=== PATIENT | female | born 1940 | race Caucasian/White ===

== ENCOUNTER 2019-05-04 14:54 | Inpatient (IN) | payer OTHER, MEDICAID ==
[~2019-05-04] VITALS: Ht 147.3 cm; Wt 52.6 kg
[2019-05-04 15:35] VITALS: BP_SYST 148
--- NOTE | 2019-05-04 15:39 | NUR ---
PATIENT PRESENTS TO THE ER WITH HX OF FREQUENT FALLS OVER THE PAST TWO MONTHS WITH ECCYMOTIC AREAS OVER ARMS AND TRUNK IN VARYING DEGREES OF SHADE AND HEALING; STATES THE RECENT FALL HAS CAUSED HER RIGHT HIP PAIN AND UPON ADVISIMG PMD, WAS INSTRUCTED TO GO TO ER FOR EVALUATION; NO LOC, NO OTHER TRAUMA, NO OTHER REMARKABLE S/S; PATIENT IS [place]; PATIENT TO ER #4 AND PLACED ON TOP POLISHER AND SAO2 AT 1530
[2019-05-04] MEDS ORDERED: OXYB15TA3 PO (15:45)
[2019-05-04] MEDS ORDERED: ENAL10TA75 PO ×2 (15:45→18:11)
[2019-05-04] MEDS ORDERED: AMLO5TAB4 PO ×2 (15:45→18:11)
[2019-05-04] MEDS ORDERED: [UNRECOGNIZED DRUG - CODE] PO (15:45)
[2019-05-04] MEDS ORDERED: PRO40 PO ×2 (15:45→18:11)
[2019-05-04] MEDS ORDERED: THEO200T21 PO (15:45)
[2019-05-04] MEDS ORDERED: RANI-673 PO (15:45)
[2019-05-04] MEDS ORDERED: ASPI-524 PO (15:45)
--- NOTE | 2019-05-04 16:09 | NUR ---
ER at bedside examining patient.
--- NOTE | 2019-05-04 16:25 | NUR ---
CXR and hip xray done at the bedside.
--- NOTE | 2019-05-04 16:30 | NUR ---
patient was sent by PCP for evaluatin for frequent fall over past 2 month, bruises arm, trunk noted. pt polish speaking. family at bedside. pt [place] and forgetful. vital sign stable, afebrile. side rail up. fall preaution maintained. will monitor.
[2019-05-04 16:39] LABS: BASOPHILS # (AUTO) 0.1 K/uL (0.0-0.2); BASOPHILS % (AUTO) 0.9 % (0.0-2.0); EOSINOPHILS # (AUTO) 0.2 K/uL (0.0-0.4); EOSINOPHILS % (AUTO) 2.2 % (0.0-4.0); HEMATOCRIT 35.4 % (36-48); HEMOGLOBIN 11.7 g/dL (12.0-16.0); LYMPHOCYTES # (AUTO) 1.7 K/uL (1.0-5.5); LYMPHOCYTES % (AUTO) 17.5 % (20.5-51.5); MEAN CORPUSCULAR HEMOGLOBIN 30 pg (27-31); MEAN CORPUSCULAR HGB CONC 33 % (32-36); MEAN CORPUSCULAR VOLUME 91 fL (79.0-98.0); MONOCYTES # (AUTO) 0.6 K/uL (0.0-1.0); MONOCYTES % (AUTO) 6.3 % (1.7-9.3); NEUTROPHILS # (AUTO) 6.9 K/uL (1.8-7.7); NEUTROPHILS % (AUTO) 73.1 % (40.0-70.0); PLATELET COUNT (AUTO) 253 K/uL (130-430); RED BLOOD CELL COUNT(AUTO) 3.89 MIL/uL (4.2-6.2); RED CELL DISTRIBUTION WIDTH 14.3 % (9.0-15.0); WHITE BLOOD COUNT (AUTO) 9.4 K/uL (4.8-10.8)
[2019-05-04 16:53] LABS: ANION GAP 5 (5-15); CALCIUM 9.9 mg/dL (8.4-11.0); CHLORIDE 107 mmol/L (98-107); CREATININE 0.84 mg/dL (0.55-1.30); GLUCOSE 97 mg/dL (70-99); SODIUM SERUM 139 mmol/L (136-145); UREA NITROGEN, BLOOD 19 mg/dL (8-21)
[2019-05-04 16:59] LABS: ALANINE AMINOTRANSFERASE 23 U/L (12-78); ALBUMIN 3.1 g/dL (3.4-4.8); ASPARTATE AMINOTRANSFERASE 17 U/L (10-37); TOTAL BILIRUBIN 0.2 mg/dL (0.0-1.0)
[2019-05-04] MEDS ORDERED: POTASSIUM CHLORIDE 20 MEQ/PKT PACKET PO ONE (17:30)
[2019-05-04] MEDS ORDERED: RANI-362 PO (18:11)
[2019-05-04] MEDS ORDERED: LOVA20TA2 PO (18:11)
[2019-05-04] MEDS ORDERED: OXYB10TA4 PO (18:11)
[2019-05-04] MEDS ORDERED: TRAM-350 PO (18:11)
[2019-05-04] MEDS ORDERED: ASA81 PO (18:11)
[2019-05-04] MEDS ORDERED: THEO200T22 PO (18:11)
--- NOTE | 2019-05-04 18:14 | NUR ---
patient refused to straight catheter stated wants to eat dinner first.
[2019-05-04] MEDS ORDERED: KCL 20 mEq in D5/0.45NS 1000mL 1,000 ML IV ONE ×2 (19:30→21:26)
--- NOTE | 2019-05-04 19:31 | NUR ---
report given to Audrey WORTHY
--- NOTE | 2019-05-04 19:49 | NUR ---
ADMISSION NOTE Received patient from ER via kang, received report from ZAYNAB Ventura. Patient admitted with diagnosis of metabolic encephalopathy, possible UTI. Patient oriented to hospital routine, call light, toileting and safety-patient verbalized understanding.
--- NOTE | 2019-05-04 19:50 | NUR ---
Patient transferred to tele unit room 121C with second RN. All belongs sent with patient. VSS. Report given at bedside.
[2019-05-04 19:51] VITALS: BP_SYST 141
[2019-05-04] MEDS ORDERED: FLU VACC TS2019(65UP)/MF59C/PF 45 MCG/0.5 ML SYRINGE I.M. PRN (20:15)
[2019-05-04] MEDS: KCL 20 mEq in D5/0.45NS 1000mL 1,000 ML IV SCH (21:19)
--- NOTE | 2019-05-04 21:19 | NUR ---
IVF PATIENT STARTED ON IVF ORDERED. IV LINE INTACT AND PATENT.
[2019-05-05 00:27] LABS: BILIRUBIN,URINE NEGATIVE (NEGATIVE); BLOOD, URINE NEGATIVE (NEGATIVE); CLARITY/URINE CLEAR (CLEAR); COLOR,URINE YELLOW (YELLOW); GLUCOSE,URINE NEGATIVE (NEGATIVE); KETONES,URINE NEGATIVE (NEGATIVE); LEUKOCYTE ESTERASE ,URINE NEGATIVE (NEGATIVE); NITRITE, URINE NEGATIVE (NEGATIVE); PROTEIN URINE NEGATIVE (NEGATIVE); UROBILINOGEN,URINE 0.2 (0.2-1.0)
[2019-05-05] MEDS ORDERED: ENOXAPARIN SODIUM 30 MG/0.3 ML SYRINGE SUBCUT SCH (01:00)
--- NOTE | 2019-05-05 01:17 | NUR ---
CONSULT: CONSULT CALLED FOR DR. PATRICK I SPOKE WITH RACHEL BELTRAN REASON FOR CONSULT: HYPERCALCEMIA REQUESTING CONSULT: DR KEYES PROTECTIVE SIGNAL REPAIRER HELPER PHONE NUMBER: [phone]
[2019-05-05 01:28] VITALS: BP_SYST 134
--- NOTE | 2019-05-05 01:28 | NUR ---
BLOOD THINNER PATIENT STARTED ON BLOOD THINNER FOR DVT PROPHYLAXIS ORDERED. PATIENT EVELYN ANY ACTIVE BLEEDING. POSSIBLE SIDE EFFECTS DISCUSSED WITH PATIENT.
--- NOTE | 2019-05-05 04:00 | NUR ---
ROUNDS PATIENT RESTING IN BED. BREATHING UNLABORED. IVF INFUSING.
[2019-05-05] MEDS: PANTOPRAZOLE SODIUM 40 MG TAB PO SCH (06:37)
[2019-05-05 06:47] LABS: BASOPHILS # (AUTO) 0.1 K/uL (0.0-0.2); BASOPHILS % (AUTO) 0.8 % (0.0-2.0); EOSINOPHILS # (AUTO) 0.3 K/uL (0.0-0.4); EOSINOPHILS % (AUTO) 4.3 % (0.0-4.0); HEMATOCRIT 32.5 % (36-48); HEMOGLOBIN 10.7 g/dL (12.0-16.0); LYMPHOCYTES # (AUTO) 1.5 K/uL (1.0-5.5); LYMPHOCYTES % (AUTO) 19.5 % (20.5-51.5); MEAN CORPUSCULAR HEMOGLOBIN 30 pg (27-31); MEAN CORPUSCULAR HGB CONC 33 % (32-36); MEAN CORPUSCULAR VOLUME 92 fL (79.0-98.0); MONOCYTES # (AUTO) 0.7 K/uL (0.0-1.0); MONOCYTES % (AUTO) 8.8 % (1.7-9.3); NEUTROPHILS # (AUTO) 5.3 K/uL (1.8-7.7); NEUTROPHILS % (AUTO) 66.6 % (40.0-70.0); PLATELET COUNT (AUTO) 225 K/uL (130-430); RED BLOOD CELL COUNT(AUTO) 3.54 MIL/uL (4.2-6.2); RED CELL DISTRIBUTION WIDTH 14.8 % (9.0-15.0)
--- NOTE | 2019-05-05 06:59 | NUR ---
CLOSING NOTES NO CHANGED IN PATIENT CONDITION. IVF INFUSING WITH IV LINE INTACT AND PATENT. PATIENT NEEDS ATTENDED. CALL LIGHT WITH IN REACH.
[2019-05-05 07:52] LABS: ANION GAP 6 (5-15); CALCIUM 9.8 mg/dL (8.4-11.0); CHLORIDE 105 mmol/L (98-107); CREATININE 0.71 mg/dL (0.55-1.30); GLUCOSE 84 mg/dL (70-99); POTASSIUM 3.4 mmol/L (3.5-5.1); SODIUM SERUM 136 mmol/L (136-145); UREA NITROGEN, BLOOD 15 mg/dL (8-21)
[2019-05-05 07:55] VITALS: BP_SYST 146
--- NOTE | 2019-05-05 08:00 | NUR ---
am rounds: Patient is alert, oriented to name and place. Denies pain. Call light within reach.
[2019-05-05] MEDS ORDERED: OXYBUTYNIN CHLORIDE 30 MG PO SCH (09:00)
[2019-05-05] MEDS: ASPIRIN 81 MG TAB.CHEW PO SCH (09:27)
[2019-05-05] MEDS: amLODIPine BESYLATE 5 MG TABLET PO SCH (09:27)
[2019-05-05] MEDS: ENALAPRIL MALEATE 10 MG TABLET (VASOTEC) PO SCH (09:27)
[2019-05-05] MEDS: KCL 20 mEq in D5/0.45NS 1000mL 1,000 ML IV SCH ×2 (09:27→21:07)
[2019-05-05] MEDS: THEOPHYLLINE ANHYDROUS 200 MG TAB.SR.12H PO SCH ×2 (09:30→21:28)
--- NOTE | 2019-05-05 09:58 | NUR ---
Nutrition Update Juan Miguel Scale 17 noted. Pt admitted for metabolic encephalopathy Diet: Regular BMI: 24.2 kg/m2 RD to follow per nutrition care standards.
--- NOTE | 2019-05-05 11:00 | NUR ---
Rounds: Resting in bed. Patient calls a lot.
[2019-05-05 12:31] VITALS: BP_SYST 145
[2019-05-05] MEDS ORDERED: POTASSIUM CHLORIDE 20 MEQ TAB.PRT.SR PO ONE (12:45)
--- NOTE | 2019-05-05 14:52 | NUR ---
PT zach: Seen and evaluated by PT. Christiano
--- NOTE | 2019-05-05 16:25 | NUR ---
Oxybutin home med: Spoke with patient's sister Anisa, she will ask brother Kvng to bring the medication tomorrow.
[2019-05-05 17:10] VITALS: BP_SYST 123
[2019-05-05] MEDS: traMADol HCL HCL 50 MG TABLET (ULTRAM) PO PRN (17:10)
[2019-05-05 17:30] VITALS: BP_SYST 123
[2019-05-05] MEDS ORDERED: LevALBUTEROL HCL 1.25 MG/0.5 ML *CONC.* VIAL.NEB (XOPENEX CONC.) INH PRN (17:30)
[2019-05-05] MEDS ORDERED: LevALBUTEROL HCL 1.25 MG/0.5 ML *CONC.* VIAL.NEB (XOPENEX CONC.) INH ONE (17:47)
--- NOTE | 2019-05-05 19:25 | NUR ---
CHANGE OF SHIFT: pt. sleeping when received, no distress noted. IVF infusing, on fall risk precautions, bed alarm on. cardiac pattern on sinus jak borderline sinus rhythm. call light at bedside.
--- NOTE | 2019-05-05 20:30 | NUR ---
NOTES: pt. awakened, trying to get out of bed. pt. gets disoriented and forgetful but follows simple commands. IV site on rt. forearm near antecubital, appears reddened and slightly swollen, will start another IV site. able to move all extremities. on room air, no shortness of breath, no pain noted. call light at bedside.
[2019-05-05 21:00] VITALS: BP_SYST 123
[2019-05-05] MEDS ORDERED: ENOXAPARIN SODIUM 40 MG/0.4 ML SYRINGE SUBCUT SCH (21:00)
[2019-05-05] MEDS ORDERED: LOVASTATIN 20 MG TABLET PO SCH (21:00)
[2019-05-05] MEDS: ATORVASTATIN 10 MG TABLET PO SCH (21:09)
[2019-05-05] MEDS: ENOXAPARIN SODIUM 30 MG/0.3 ML SYRINGE SUBCUT SCH (21:28)
--- NOTE | 2019-05-05 21:30 | NUR ---
NOTES: due meds taken. IV started on rt. hand and resume IVF. pt. got up with CONSULTING SERVICES MANAGER help to BSC and voided.
[2019-05-05] MEDS: LevALBUTEROL HCL 1.25 MG/0.5 ML *CONC.* VIAL.NEB (XOPENEX CONC.) INH SCH (23:47)
--- NOTE | 2019-05-06 | NUR ---
NOTES: pt. been sleeping at intervals, noted some sore throat, warm water given.repositioned.
[2019-05-06 00:12] VITALS: BP_SYST 133
--- NOTE | 2019-05-06 03:00 | NUR ---
NOTES: condition unchanged, continue to monitor.
--- NOTE | 2019-05-06 06:00 | NUR ---
NOTES: pt. c/o sore throat again wants Aspirin , warm water given , will call MD for medication this am, informed pt. IVF infusing well, site patent.
--- NOTE | 2019-05-06 06:48 | NUR ---
CLOSING NOTES; pt. condition unchanged. IVF infusing well on tr. hand. for further care and assistance. call light at bedside. on fall risk precautions.
[2019-05-06 06:55] LABS: ANION GAP 6 (5-15); CALCIUM 10.1 mg/dL (8.4-11.0); CHLORIDE 108 mmol/L (98-107); GLUCOSE 90 mg/dL (70-99); POTASSIUM 4.5 mmol/L (3.5-5.1); SODIUM SERUM 140 mmol/L (136-145); UREA NITROGEN, BLOOD 13 mg/dL (8-21)
[2019-05-06] MEDS: LevALBUTEROL HCL 1.25 MG/0.5 ML *CONC.* VIAL.NEB (XOPENEX CONC.) INH SCH ×3 (07:27→23:44)
[2019-05-06 08:00] VITALS: BP_SYST 132
[2019-05-06] MEDS: PANTOPRAZOLE SODIUM 40 MG TAB PO SCH (10:24)
[2019-05-06] MEDS: ENALAPRIL MALEATE 10 MG TABLET (VASOTEC) PO SCH (10:25)
[2019-05-06] MEDS: amLODIPine BESYLATE 5 MG TABLET PO SCH (10:26)
[2019-05-06] MEDS: THEOPHYLLINE ANHYDROUS 200 MG TAB.SR.12H PO SCH ×2 (10:40→20:28)
[2019-05-06] MEDS: KCL 20 mEq in D5/0.45NS 1000mL 1,000 ML IV SCH ×2 (10:41→23:58)
[2019-05-06 13:58] VITALS: BP_SYST 142
[2019-05-06] MEDS: ASPIRIN 81 MG TAB.CHEW PO SCH (14:41)
[2019-05-06] MEDS: cefTRIAXone 1 GM in D5W 50 ML IV SCH (17:52)
[2019-05-06] MEDS: AZITHROMYCIN 500 MG in NS 250 ML IV SCH (17:52)
[2019-05-06] MEDS: OXYBUTYNIN 5 MG PO SCH ×2 (18:05→20:26)
[2019-05-06 18:11] VITALS: BP_SYST 135
--- NOTE | 2019-05-06 19:45 | NUR ---
Initial note: Received report from daysjaysonft RN. Patient is awake in bed, alert and oriented to name. IV site presents with no infiltration. Call light is with patient. Safety and fall precautions in place. Will continue with plan of care.
[2019-05-06 20:19] VITALS: BP_SYST 134
[2019-05-06] MEDS: ATORVASTATIN 10 MG TABLET PO SCH (20:28)
[2019-05-06] MEDS: ENOXAPARIN SODIUM 30 MG/0.3 ML SYRINGE SUBCUT SCH (20:30)
--- NOTE | 2019-05-06 22:56 | NUR ---
Rounds: Patient is sleeping. Does not show any acute distress. Tolerating room air. IV site patent and benign. Call light with patient. Will continue monitoring.
[2019-05-07 00:49] VITALS: BP_SYST 125
--- NOTE | 2019-05-07 01:37 | NUR ---
Rounds: Patient is asleep in bed. No acute distress, even and unlabored breathing on room air. No infiltration at IV site. Call light with patient. Will continue to monitor.
--- NOTE | 2019-05-07 04:30 | NUR ---
Rounds: Patient is resting comfortably in bed. No acute distress. Even and unlabored respirations on room air. IV site patent and benign. Call light with patient. Will continue monitoring.
[2019-05-07] MEDS: PANTOPRAZOLE SODIUM 40 MG TAB PO SCH (06:05)
--- NOTE | 2019-05-07 06:12 | NUR ---
Closing note: Patient is resting in bed, no acute distress. Tolerating room air. IV site is patent and benign, no infiltration. Incontinence care rendered, patient tolerated well. All needs met. Safety, fall, aspiration precautions observed. Hourly rounding performed throughout shift. Will endorse care to dayshift RN.
[2019-05-07] MEDS: LevALBUTEROL HCL 1.25 MG/0.5 ML *CONC.* VIAL.NEB (XOPENEX CONC.) INH SCH ×2 (07:30→22:45)
--- NOTE | 2019-05-07 07:40 | NUR ---
opening note patient is resting in bed, receiving her breathing treatment, no signs of distress at this time, patient is hard of hearing, was able to tell me her name, educated cost reduction engineer light system and plan of care, patient did not give me a verbal response, she kept saying "I want food", brake armed, bed alarm on, three side rails up, call light within reach, bed close to station, fall/safety precautions in place, IV site dressing in tact with IVF running and patient is tolerating well.
[2019-05-07 08:01] VITALS: BP_SYST 131
[2019-05-07 08:08] LABS: ANION GAP 9 (5-15); CALCIUM 9.8 mg/dL (8.4-11.0); CHLORIDE 100 mmol/L (98-107); CREATININE 0.69 mg/dL (0.55-1.30); FREE T4 (FREE THYROXINE) 0.8 ng/dl (0.8-1.5); GLUCOSE 103 mg/dL (70-99); POTASSIUM 4.5 mmol/L (3.5-5.1); SODIUM SERUM 133 mmol/L (136-145); UREA NITROGEN, BLOOD 13 mg/dL (8-21)
[2019-05-07] MEDS: THEOPHYLLINE ANHYDROUS 200 MG TAB.SR.12H PO SCH ×2 (08:36→21:05)
[2019-05-07] MEDS: ASPIRIN 81 MG TAB.CHEW PO SCH (08:37)
[2019-05-07] MEDS: OXYBUTYNIN 5 MG PO SCH ×2 (08:37→21:01)
[2019-05-07] MEDS: ENALAPRIL MALEATE 10 MG TABLET (VASOTEC) PO SCH (08:37)
[2019-05-07] MEDS: amLODIPine BESYLATE 5 MG TABLET PO SCH (08:37)
--- NOTE | 2019-05-07 10:40 | NUR ---
Dr Allan came to see patient. I repositioned patient, no signs of distress at this time, no needs addressed at this time, fall/safety precautions in place.
[2019-05-07 12:00] VITALS: BP_SYST 114
--- NOTE | 2019-05-07 12:05 | NUR ---
rounds repositioned patient, assisted her with her lunch tray, no signs of distress at this time, no other needs addressed at this time, fall/safety precautions in place.
--- NOTE | 2019-05-07 14:05 | NUR ---
hygiene care with assist, patient was cleaned and linen changed after incontinence episode, patient refused PT at this time, RT did breathing treatment for patient, no signs of distress at this time, no other needs addressed at this time, fall/safety precautions in place.
[2019-05-07 16:00] VITALS: BP_SYST 131
--- NOTE | 2019-05-07 16:01 | NUR ---
PHYSICAL THERAPY CO-SIGN The Physical Therapy Progress Notes documented by Pick Pulling Machine Operator have been reviewed. Reviewed/Co-Signed by: Inna Lane PT Documentation Done by:WALDO CHERRY PTA POC REVIEWED W/ VOCATIONAL EDUCATION TEACHER Addendum: 05/08/[address] PT Amended: Links added.
--- NOTE | 2019-05-07 16:16 | NUR ---
patient resting in bed eyes opened, no signs of distress at this time, no needs addressed at this time, patient repositioned, fall/safety precautions in place.
[2019-05-07] MEDS: cefTRIAXone 1 GM in D5W 50 ML IV SCH (17:06)
[2019-05-07] MEDS: AZITHROMYCIN 500 MG in NS 250 ML IV SCH (18:10)
--- NOTE | 2019-05-07 18:53 | NUR ---
closing note patient is resting in bed, no signs of distress at this time, patient is hard of hearing, bed alarm on, three side rails up, call light within reach, bed close to station, fall/safety precautions in place, IV site dressing in tact with IVF running and patient is tolerating well, will endorse report to appellate law clerk nurse to continue with care, patient is incontinent, patient has her hearing aid at the bedside.
--- NOTE | 2019-05-07 19:30 | NUR ---
Pt was received lying in bed fully awake and oriented to her name and place. Pt is hard of hearing. No acute distress noted and no c/o pain or discomfort. IVF of D5 1/2NS w/ 20meq KCL is infusing well in right hand at 75ml/hr without any signs of infiltration. Fall and safety precautions are in place. Call light is with pt and bed alarm is on.
[2019-05-07 20:00] VITALS: BP_SYST 95
[2019-05-07] MEDS: ATORVASTATIN 10 MG TABLET PO SCH (21:02)
--- NOTE | 2019-05-07 21:02 | NUR ---
Scheduled HS medications given and no difficulty swallowing noted. Fall and safety precautions are in place.
[2019-05-07] MEDS: ENOXAPARIN SODIUM 30 MG/0.3 ML SYRINGE SUBCUT SCH (21:10)
--- NOTE | 2019-05-07 21:30 | NUR ---
Pt c/o pain at the IV site in RH and she removed the Angiocath intact. New IV line was restarted in RFA with Angiocath 20G and IVF was resumed at 75ml/hr. Call light is with pt and bed alarm is on.
--- NOTE | 2019-05-07 21:45 | NUR ---
Pt was given 1/2 turkey sandwich per her request and she ate 50%. IVF is infusing well in [facility]. Fall and safety precautions are in place.
[2019-05-08 00:16] VITALS: BP_SYST 115
--- NOTE | 2019-05-08 00:25 | NUR ---
Sleeping without any distress noted. IVF is infusing well in RFA. Fall and safety precautions are in place.
--- NOTE | 2019-05-08 02:26 | NUR ---
Pt is sleeping comfortably in bed. IVF is infusing well in RFA. Fall and safety precautions are in place.
--- NOTE | 2019-05-08 04:25 | NUR ---
Pt continues to sleep without any respiratory distress noted. Saline lock is without any signs of infiltration. Fall and safety precautions are in place.
[2019-05-08] MEDS: KCL 20 mEq in D5/0.45NS 1000mL 1,000 ML IV SCH ×2 (05:45→17:04)
[2019-05-08] MEDS: LEVOTHYROXINE SODIUM 0.025 MG TABLET PO SCH (06:18)
[2019-05-08] MEDS: PANTOPRAZOLE SODIUM 40 MG TAB PO SCH (06:18)
--- NOTE | 2019-05-08 06:30 | NUR ---
Pt is awake and resting comfortably in bed. All pt's needs were attended to. Fall and safety precautions are in place. IVF is infusing well in RFA without any signs of infiltration. Will endorse to day shift nurse.
[2019-05-08 06:49] LABS: ANION GAP 5 (5-15); BASOPHILS % (AUTO) 0.7 % (0.0-2.0); CALCIUM 9.4 mg/dL (8.4-11.0); CHLORIDE 100 mmol/L (98-107); CREATININE 0.71 mg/dL (0.55-1.30); EOSINOPHILS # (AUTO) 0.1 K/uL (0.0-0.4); GLUCOSE 86 mg/dL (70-99); HEMATOCRIT 31.8 % (36-48); HEMOGLOBIN 10.5 g/dL (12.0-16.0); LYMPHOCYTES # (AUTO) 0.6 K/uL (1.0-5.5); LYMPHOCYTES % (AUTO) 8.5 % (20.5-51.5); MEAN CORPUSCULAR HEMOGLOBIN 30 pg (27-31); MEAN CORPUSCULAR HGB CONC 33 % (32-36); MEAN CORPUSCULAR VOLUME 91 fL (79.0-98.0); MONOCYTES # (AUTO) 0.9 K/uL (0.0-1.0); MONOCYTES % (AUTO) 12.9 % (1.7-9.3); NEUTROPHILS # (AUTO) 5.1 K/uL (1.8-7.7); NEUTROPHILS % (AUTO) 76.9 % (40.0-70.0); PLATELET COUNT (AUTO) 237 K/uL (130-430); POTASSIUM 4.8 mmol/L (3.5-5.1); RED BLOOD CELL COUNT(AUTO) 3.48 MIL/uL (4.2-6.2); RED CELL DISTRIBUTION WIDTH 14.8 % (9.0-15.0); SODIUM SERUM 130 mmol/L (136-145); UREA NITROGEN, BLOOD 13 mg/dL (8-21); WHITE BLOOD COUNT (AUTO) 6.6 K/uL (4.8-10.8)
--- NOTE | 2019-05-08 07:30 | NUR ---
opening note patient is resting in bed, no signs of distress at this time, patient is hard of hearing, was able to tell me her name, educated executive compensation analyst light system and plan of care, patient said "okay" to me, brake armed, bed alarm on, three side rails up, call light within reach, bed close to station, fall/safety precautions in place, IV site dressing in tact with IVF running and patient is tolerating well. Dr Wilson came to see patient.
[2019-05-08 08:00] VITALS: BP_SYST 135
[2019-05-08 08:06] LABS: CALCIUM 10.3 mg/dL (8.7-10.3)
[2019-05-08] MEDS: ASPIRIN 81 MG TAB.CHEW PO SCH (08:26)
[2019-05-08] MEDS: MEGESTROL ACETATE 400 MG/10 ML UDC PO SCH (08:26)
[2019-05-08] MEDS: ENALAPRIL MALEATE 10 MG TABLET (VASOTEC) PO SCH (08:27)
[2019-05-08] MEDS: LevALBUTEROL HCL 1.25 MG/0.5 ML *CONC.* VIAL.NEB (XOPENEX CONC.) INH SCH ×3 (08:28→23:00)
[2019-05-08] MEDS: OXYBUTYNIN 5 MG PO SCH ×2 (08:28→20:51)
[2019-05-08] MEDS: amLODIPine BESYLATE 5 MG TABLET PO SCH (08:28)
[2019-05-08] MEDS: THEOPHYLLINE ANHYDROUS 200 MG TAB.SR.12H PO SCH ×2 (08:29→20:49)
--- NOTE | 2019-05-08 10:30 | NUR ---
brother in the room updated him on patient plan of care, verbalized understanding, no signs of distress at this time, no other needs addressed at this time, fall/safety precautions in place.
[2019-05-08] MEDS: guaiFENesin/DEXTROMETHORPHAN 10 ML UDC PO SCH ×3 (11:14→23:53)
[2019-05-08] MEDS ORDERED: guaiFENesin/DEXTROMETHORPHAN 10 ML UDC PO SCH (12:00)
[2019-05-08 12:25] VITALS: BP_SYST 109
--- NOTE | 2019-05-08 14:33 | NUR ---
patient resting in bed eyes opened, no signs of distress at this time, hygiene care was done on patient by EMBROIDERY FINISHER, no other needs at this time, fall/safety precautions in place.
--- NOTE | 2019-05-08 16:15 | NUR ---
patient cleaned with assist from SINGING MESSENGER patient was cleaned, caregiver was present but left for today, no signs of distress, no other needs addressed at this time, fall/safety precautions in place.
[2019-05-08 16:19] VITALS: BP_SYST 104
[2019-05-08] MEDS: cefTRIAXone 1 GM in D5W 50 ML IV SCH (17:03)
[2019-05-08] MEDS: AZITHROMYCIN 500 MG in NS 250 ML IV SCH (18:01)
--- NOTE | 2019-05-08 18:33 | NUR ---
closing note patient is resting in bed, no signs of distress at this time, patient is hard of hearing, bed alarm on, three side rails up, call light within reach, bed close to station, fall/safety precautions in place, IV site dressing intact with IV antibiotic running at this time and patient is tolerating well, will endorse report to restaurant shift supervisor nurse to continue with care, patient is incontinent, patient has her hearing aid at the bedside.
--- NOTE | 2019-05-08 19:15 | NUR ---
OPENING NOTE Late entry due to patient care. bedside report received from dayshift nurse. Patient received lying in bed awake, watching TV. No s/s of acute distress noted. Breathing even and unlabored. IVF infusing well. IV site patent, no signs of infiltration or infection noted. Call light with patient. Bed alarm on. Bed is locked and at lowest position. Will continue to monitor.
[2019-05-08 20:00] VITALS: BP_SYST 112
[2019-05-08] MEDS: ATORVASTATIN 10 MG TABLET PO SCH (20:48)
[2019-05-08] MEDS: ENOXAPARIN SODIUM 30 MG/0.3 ML SYRINGE SUBCUT SCH (20:49)
--- NOTE | 2019-05-08 21:00 | NUR ---
ROUNDS Patient in bed awake, confused, no s/s of acute distress noted. Breathing even and unlabored. IVF infusing well. Call light with patient. Bed alarm on. Will continue to monitor.
--- NOTE | 2019-05-08 23:00 | NUR ---
INCONTINENT CARE Patient being cleaned by REGIONAL SALES REPRESENTATIVE at this time. Patient tolerated well. All needs met. Will continue to monitor.
[2019-05-09 00:26] VITALS: BP_SYST 107
[2019-05-09] MEDS: traMADol HCL HCL 50 MG TABLET (ULTRAM) PO PRN (01:00)
--- NOTE | 2019-05-09 01:00 | NUR ---
PAIN Patient complained of throat pain. PRN medication to be administered. Will continue to monitor and reassess.
--- NOTE | 2019-05-09 03:00 | NUR ---
ROUNDS Patient in bed asleep. No s/s of acute distress. Bed alarm on. Will continue to monitor.
--- NOTE | 2019-05-09 05:00 | NUR ---
ROUNDS Patient in bed asleep. No signs of discomfort noted. Chest rise and fall even bilaterally. Call light with patient. Bed alarm on. Will continue to monitor.
[2019-05-09] MEDS: KCL 20 mEq in D5/0.45NS 1000mL 1,000 ML IV SCH (05:56)
[2019-05-09] MEDS: guaiFENesin/DEXTROMETHORPHAN 10 ML UDC PO SCH ×2 (05:56→12:19)
[2019-05-09] MEDS: PANTOPRAZOLE SODIUM 40 MG TAB PO SCH (05:56)
[2019-05-09] MEDS: LEVOTHYROXINE SODIUM 0.025 MG TABLET PO SCH (05:56)
--- NOTE | 2019-05-09 06:55 | NUR ---
CLOSING NOTES Patient in bed sleeping at this time. No s/s of acute distress noted. Breathing even and unlabored. IVF infusing well. SCDs attached and operating. All needs met throughout shift. Fall and safety precautions maintained throughout shift. Will continue to monitor until patient care is endorsed to oncoming dayshift nurse.
[2019-05-09] MEDS: LevALBUTEROL HCL 1.25 MG/0.5 ML *CONC.* VIAL.NEB (XOPENEX CONC.) INH SCH ×2 (07:20→14:01)
[2019-05-09 07:34] LABS: ANION GAP 7 (5-15); CALCIUM 10.3 mg/dL (8.4-11.0); CHLORIDE 105 mmol/L (98-107); CREATININE 0.62 mg/dL (0.55-1.30); GLUCOSE 85 mg/dL (70-99); POTASSIUM 4.5 mmol/L (3.5-5.1); SODIUM SERUM 135 mmol/L (136-145); UREA NITROGEN, BLOOD 11 mg/dL (8-21)
--- NOTE | 2019-05-09 07:34 | NUR ---
OPENING NOTE Patient sitting in upright position and eating the breakfast. No acute distress. Denied of pain. Skin warm and dry to touch. IV intact to RFA, no redness, no swelling, no drainage. On KCL 20mEq in D5 1/2NS at 75ml/hr, infusing well. Safety measure maintained. Call light within reached. Bed locked in low position, side rails up, bed alarm on. Will continue to monitor.
[2019-05-09 07:45] VITALS: BP_SYST 114
[2019-05-09] MEDS: MEGESTROL ACETATE 400 MG/10 ML UDC PO SCH (08:50)
[2019-05-09] MEDS: amLODIPine BESYLATE 5 MG TABLET PO SCH (08:50)
[2019-05-09] MEDS: ENALAPRIL MALEATE 10 MG TABLET (VASOTEC) PO SCH (08:51)
[2019-05-09] MEDS: ASPIRIN 81 MG TAB.CHEW PO SCH (08:51)
[2019-05-09] MEDS: THEOPHYLLINE ANHYDROUS 200 MG TAB.SR.12H PO SCH (08:58)
[2019-05-09] MEDS: OXYBUTYNIN 5 MG PO SCH (09:08)
--- NOTE | 2019-05-09 09:08 | NUR ---
AM SCHEDULE MED GIVEN, TOLERATED WELL.
--- NOTE | 2019-05-09 11:18 | NUR ---
Nutrition Assessment (short note d/t high patient load) Admit Dx: Metabolic Encephalopathy A- RD reviewed pt's current EMR including diet Hx, physician notes, nursing notes, pertinent labs/meds/procedures, care trends and care activity. Pt seen resting in bed, +confused. Per PRODUCTION ZONE LEADER report, pt ate 20% of food from breakfast, tolerates milk. PRODUCTION ZONE LEADER agreed on adding ONS for supplementation. Per EMR, PO intake Poor 29% average of 2 days. Nutrition education is not appropriate. Current Diet Order: Regular diet x 4 days Ht: 4in Wt: 116#/ 53 kg BMI: 24.2 kg/m2 (Normal weight) %IBW: 129% IBW: 90#/ 41 kg ESTIMATED NUTRITIONAL REQUIREMENTS CALORIES/DAY: 2329-1894 kcal/day (25-30 kcal/kg CBW for maintenance) PROTEIN/DAY: 53-69gm/day (1.3 gm/kg CBW for Geriatric maintenance) FLUID/DAY: 1.3 L/day (25ml/kg CBW for Geriatric maintenance) D: Suboptimal PO intake r/t poor appetite 2/2 metal status AEB PO intake meeting <50% of est needs x 2 days I: 1. Recommend: Regular diet w/ Ensure Enlive TID. ONS will provide additional 1050 kcal, 60 gm protein daily. 2. Encourage pt to increase PO intake. 3. Continue Megace. M: Monitor appetite and PO intake w/ goal of pt meeting at least 75% of estimated nutritional needs, labs trending WNL, normal GI function, skin integrity/wt maintenance. E: RD to F/U within 2-3 days AVELINO MURRAY
--- NOTE | 2019-05-09 11:20 | NUR ---
ROUND Patient resting in the bed and watching TV. No acute distress. Safety measure maintained. Call light within reached. Bed locked in low position, side rails up, bed alarm on. Continue to monitor.
--- NOTE | 2019-05-09 11:23 | NUR ---
Dietitian Recommendation 1. Recommend: Regular diet w/ Ensure Enlive TID. ONS will provide additional 1050 kcal, 60 gm protein daily. 2. Encourage pt to increase PO intake. 3. Continue Megace. Please see Nutritional Assessment for details. AVELINO MURRAY
[2019-05-09] MEDS ORDERED: THEOPHYLLINE ANHYDROUS 200 MG CAP.ER.24H PO SCH (12:09)
[2019-05-09 13:18] VITALS: BP_SYST 143
--- NOTE | 2019-05-09 13:35 | NUR ---
SEEN AND EXAMINED BY MALINDA AARON WITH DISCHARGE ORDER RECEIVED.
--- NOTE | 2019-05-09 14:44 | NUR ---
Discharge Planning: Pt has been accepted at [facility] ([phone]); Jose stated that pt will go to room 37B. NEUROSURGERY RESEARCH DIRECTOR spoke with pt's brother Kvng ([phone]) who is agreeable to pt's transfer. Ambulance has been set up with [facility] ([phone]); scrap picker at 5:00pm. Packet has been taken to the nurses station.
--- NOTE | 2019-05-09 16:46 | NUR ---
REPORT GIVEN Called Hipolito Arellano, report given to ZAYNAB Temple.
[2019-05-09 16:50] VITALS: BP_SYST 128
--- NOTE | 2019-05-09 17:15 | NUR ---
PATIENT HOME MEDICATION Patient has a bottle of Oxybutynin, put into with patient's belonging bag, shown to EMT of care ambulance.
--- NOTE | 2019-05-09 17:20 | NUR ---
PT TRANSFERRED Report given to ZAYNAB Temple at 1646. Transfer packet with Transfer Orders and Medication Reconciliation form given to EMT with report. Exitcare provided. [facility] ID band removed, replaced with ID band with pt's name and . IV catheter removed, intact and dressing applied, no active bleeding. All belongings sent with patient. Patient left floor via gurney escorted by EMT in no distress.
[2019-05-09 18:01] VITALS: BP_SYST 105
== END 2019-05-09 17:20 | DRG 177 ==
LOC: SED 14:54 → STU 17:54 → SMU 05-06 17:04
PROVIDERS: ADMIT Family Medicine; ATTEND Family Medicine
DX: J15.6 Pneumonia due to other Gram-negative bacteria (principal); G93.41 Metabolic encephalopathy; M06.9 Rheumatoid arthritis, unspecified; I10 Essential (primary) hypertension; E83.52 Hypercalcemia; E78.5 Hyperlipidemia, unspecified; J44.9 Chronic obstructive pulmonary disease, unspecified; M81.0 Age-related osteoporosis without current pathological fracture; R29.6 Repeated falls; K21.9 Gastro-esophageal reflux disease without esophagitis; E87.6 Hypokalemia; E02 Subclinical iodine-deficiency hypothyroidism; Z79.899 Other long term (current) drug therapy
CPT/HCPCS: 36415; 71045; 72170-TC; 80048; 80053; 81003; 82306; 82310; 82330; 82550-TC; 83880; 83970; 84439; 84443-TC; 84484; 85025; 93005; 94640; 94760; 97110-GP; 97116-GP; 97530-GP; 99285; G0378; J0456; J0696; J1650; J7050; J7060; J7612

== ENCOUNTER 2020-05-15 18:39 | Inpatient (IN) | payer OTHER, MEDICAID, SELFPAY ==
[~2020-05-15] VITALS: Ht 147.3 cm; Wt 59.0 kg
[~2020-05-15 18:39] MED LIST: ASPI-524 PO; ENAL10TA75 PO; LOVA20TA2 PO; MEGE400O5 PO; OXYB10TA4 PO; PRO40 PO; SENN8.6T19 PO; THEO200T22 PO
[2020-05-15 18:49] VITALS: BP_SYST 114; BP_SYST 97
[2020-05-15] MEDS ORDERED: cefTRIAXone 1 GM IVPB PREMIX 50 ML IV ONE (19:00)
[2020-05-15 19:30] LABS: ANION GAP 11 (5-15); CALCIUM 10.1 mg/dL (8.4-11.0); CHLORIDE 113 mmol/L (98-107); CREATININE 2.03 mg/dL (0.55-1.30); GLUCOSE 104 mg/dL (70-99); POTASSIUM 4.3 mmol/L (3.5-5.1); SODIUM SERUM 147 mmol/L (136-145); UREA NITROGEN, BLOOD 71 mg/dL (8-21)
[2020-05-15 19:35] LABS: ALANINE AMINOTRANSFERASE 39 U/L (12-78); ALBUMIN 1.2 g/dL (3.4-4.8); ASPARTATE AMINOTRANSFERASE 38 U/L (10-37); TOTAL BILIRUBIN 0.3 mg/dL (0.0-1.0)
[2020-05-15 19:40] LABS: HEMATOCRIT 28.3 % (36-48); HEMOGLOBIN 9.3 g/dL (12.0-16.0); MEAN CORPUSCULAR HEMOGLOBIN 30 pg (27-31); MEAN CORPUSCULAR HGB CONC 33 % (32-36); MEAN CORPUSCULAR VOLUME 92 fL (79.0-98.0); PLATELET COUNT (AUTO) 99 K/uL (130-430); RED BLOOD CELL COUNT(AUTO) 3.08 MIL/uL (4.2-6.2); RED CELL DISTRIBUTION WIDTH 17.4 % (9.0-15.0); WHITE BLOOD COUNT (AUTO) 7.4 K/uL (4.8-10.8)
[2020-05-15] MEDS ORDERED: NACL 0.9% 1,000 ML IV ONE (19:45)
[2020-05-15 20:08] LABS: BILIRUBIN,URINE NEGATIVE (NEGATIVE); BLOOD, URINE 1+ (NEGATIVE); CLARITY/URINE CLOUDY (CLEAR); COLOR,URINE YELLOW (YELLOW); GLUCOSE,URINE NEGATIVE (NEGATIVE); KETONES,URINE NEGATIVE (NEGATIVE); LEUKOCYTE ESTERASE ,URINE 2+ (NEGATIVE); NITRITE, URINE NEGATIVE (NEGATIVE); PROTEIN URINE TRACE (NEGATIVE); UROBILINOGEN,URINE 0.2 (0.2-1.0)
[2020-05-15 20:38] LABS: BACTERIA,URINE MANY /HPF (None Seen); WBC,URINE 20-50 /HPF (0-3)
[2020-05-15 20:39] LABS: MUCUS,URINE None Seen /LPF (None Seen); URINE AMORPHOUS URATE 3+ /HPF (None Seen); YEAST,URINE Many /HPF (None Seen)
[2020-05-15 20:50] LABS: BAND % (MANUAL) 28 % (0-6); BASOPHILS % (MANUAL) 0 % (0-2); EOSINOPHILS % (MANUAL) 1 % (0-7); LYMPHOCYTES % (MANUAL) 12 % (20-46); MONOCYTES % (MANUAL) 1 % (0-11)
[2020-05-15] MEDS ORDERED: KCL 20 mEq in D5/0.45NS 1000mL 1,000 ML IV SCH (21:15)
[2020-05-15] MEDS ORDERED: ONDANSETRON HCL 4 MG/2 ML VIAL IVP PRN (23:15)
[2020-05-15] MEDS ORDERED: ACETAMINOPHEN 650 MG SUPP.RECT RC PRN (23:15)
[2020-05-15] MEDS ORDERED: PIPERACILLIN/TAZO 3.375/DEX-IS 50 ML IV SCH (23:15)
[2020-05-15 23:16] VITALS: BP_SYST 93
[2020-05-15 23:24] LABS: INR 1.1 (0.8-1.2); PROTHROMBIN TIME 11.6 SECS (9.5-12.5)
[2020-05-16] MEDS ORDERED: KCL 20 mEq in D5/0.45NS 1000mL 1,000 ML IV ONE (00:06)
[2020-05-16] MEDS ORDERED: PIPERACILLIN/TAZOBACTAM 2.25 GM VIAL IV ONE (00:06)
[2020-05-16] MEDS: LevALBUTEROL HCL 1.25 MG/0.5 ML *CONC.* VIAL.NEB (XOPENEX CONC.) INH SCH ×4 (00:33→23:38)
[2020-05-16] MEDS: PIPERACILLIN/TAZO 2.25G/DEX-IS 50 ML IV SCH ×4 (00:33→23:06)
[2020-05-16 00:35] VITALS: BP_SYST 93
[2020-05-16 06:56] LABS: BASOPHILS % (AUTO) 0.2 % (0.0-2.0); EOSINOPHILS % (AUTO) 0.3 % (0.0-4.0); HEMATOCRIT 24.4 % (36-48); HEMOGLOBIN 8.1 g/dL (12.0-16.0); LYMPHOCYTES # (AUTO) 0.3 K/uL (1.0-5.5); MEAN CORPUSCULAR HEMOGLOBIN 30 pg (27-31); MEAN CORPUSCULAR HGB CONC 33 % (32-36); MEAN CORPUSCULAR VOLUME 92 fL (79.0-98.0); MONOCYTES # (AUTO) 0.1 K/uL (0.0-1.0); MONOCYTES % (AUTO) 1.1 % (1.7-9.3); NEUTROPHILS # (AUTO) 5.1 K/uL (1.8-7.7); NEUTROPHILS % (AUTO) 92.4 % (40.0-70.0); PLATELET COUNT (AUTO) 69 K/uL (130-430); RED BLOOD CELL COUNT(AUTO) 2.67 MIL/uL (4.2-6.2); RED CELL DISTRIBUTION WIDTH 17.9 % (9.0-15.0); WHITE BLOOD COUNT (AUTO) 5.5 K/uL (4.8-10.8)
[2020-05-16 07:34] LABS: ANION GAP 11 (5-15); CALCIUM 9.1 mg/dL (8.4-11.0); CHLORIDE 116 mmol/L (98-107); CREATININE 1.83 mg/dL (0.55-1.30); GLUCOSE 189 mg/dL (70-99); POTASSIUM 4.2 mmol/L (3.5-5.1); SODIUM SERUM 147 mmol/L (136-145); UREA NITROGEN, BLOOD 67 mg/dL (8-21)
[2020-05-16 08:00] VITALS: BP_SYST 86
[2020-05-16] MEDS ORDERED: methylPREDNISolone SOD SUCC 40 MG/ML VIAL ONE (09:13)
[2020-05-16] MEDS ORDERED: NS 500 ML IV ONE (09:15)
[2020-05-16] MEDS ORDERED: methylPREDNISolone SOD SUCC/PF 62.5 MG/ML VIAL IVP SCH (09:15)
[2020-05-16] MEDS: LevALBUTEROL HCL 1.25 MG/0.5 ML *CONC.* VIAL.NEB (XOPENEX CONC.) INH PRN (09:42)
[2020-05-16] MEDS: PANTOPRAZOLE SODIUM 40 MG/VIAL (PROTONIX) IVP SCH (09:43)
[2020-05-16 12:00] VITALS: BP_SYST 100
[2020-05-16] MEDS: D5NS 1,000 ML IV SCH ×3 (13:58→23:05)
[2020-05-16] MEDS: FLUCONAZOLE 100 mg/ NS 50 ML IV SCH (13:59)
[2020-05-16] MEDS ORDERED: DEXTROSE 50% JECT 50 ML DISP.SYRIN IVP PRN (14:00)
[2020-05-16] MEDS ORDERED: *PPN PER PHARMACY XX PRN (14:00)
[2020-05-16 16:47] VITALS: BP_SYST 131
[2020-05-16] MEDS: methylPREDNISolone SOD SUCC/PF 62.5 MG/ML VIAL IVP SCH ×2 (18:13→23:06)
[2020-05-16 19:45] VITALS: BP_SYST 99
[2020-05-16] MEDS ORDERED: ENOXAPARIN SODIUM 30 MG/0.3 ML SYRINGE SUBCUT SCH (21:00)
[2020-05-17 01:26] VITALS: BP_SYST 123
[2020-05-17] MEDS: D5NS 1,000 ML IV SCH ×3 (06:00→19:20)
[2020-05-17] MEDS: PIPERACILLIN/TAZO 2.25G/DEX-IS 50 ML IV SCH ×3 (06:04→23:23)
[2020-05-17] MEDS: methylPREDNISolone SOD SUCC/PF 62.5 MG/ML VIAL IVP SCH ×4 (06:06→23:31)
[2020-05-17] MEDS ORDERED: HEPARIN SODIUM,PORCINE 5,000 UNITS/ML VIAL ONE (06:18)
[2020-05-17 06:57] LABS: BASOPHILS % (AUTO) 0.1 % (0.0-2.0); HEMATOCRIT 23.8 % (36-48); HEMOGLOBIN 7.9 g/dL (12.0-16.0); LYMPHOCYTES # (AUTO) 0.3 K/uL (1.0-5.5); LYMPHOCYTES % (AUTO) 3.9 % (20.5-51.5); MEAN CORPUSCULAR HEMOGLOBIN 30 pg (27-31); MEAN CORPUSCULAR HGB CONC 33 % (32-36); MEAN CORPUSCULAR VOLUME 92 fL (79.0-98.0); MONOCYTES # (AUTO) 0.1 K/uL (0.0-1.0); NEUTROPHILS # (AUTO) 6.2 K/uL (1.8-7.7); PLATELET COUNT (AUTO) 65 K/uL (130-430); RED BLOOD CELL COUNT(AUTO) 2.58 MIL/uL (4.2-6.2); RED CELL DISTRIBUTION WIDTH 17.7 % (9.0-15.0); WHITE BLOOD COUNT (AUTO) 6.5 K/uL (4.8-10.8)
[2020-05-17 07:16] LABS: ANION GAP 12 (5-15); CALCIUM 9.5 mg/dL (8.4-11.0); CHLORIDE 116 mmol/L (98-107); CREATININE 1.72 mg/dL (0.55-1.30); GLUCOSE 240 mg/dL (70-99); PHOSPHORUS 4.7 mg/dL (2.7-4.5); SODIUM SERUM 146 mmol/L (136-145)
[2020-05-17] MEDS: LevALBUTEROL HCL 1.25 MG/0.5 ML *CONC.* VIAL.NEB (XOPENEX CONC.) INH SCH ×3 (07:26→23:48)
[2020-05-17 07:51] LABS: TRIGLYCERIDES 15 mg/dL (30-150)
[2020-05-17 08:00] VITALS: BP_SYST 119
[2020-05-17 08:04] LABS: UREA NITROGEN, BLOOD 59 mg/dL (8-21)
[2020-05-17] MEDS: PANTOPRAZOLE SODIUM 40 MG/VIAL (PROTONIX) IVP SCH (08:32)
[2020-05-17 11:28] VITALS: BP_SYST 129
[2020-05-17] MEDS: FLUCONAZOLE 100 mg/ NS 50 ML IV SCH (11:28)
[2020-05-17] MEDS ORDERED: MAGNESIUM SULFATE 4 GM in D5W 250 ML IV ONE (14:30)
[2020-05-17] MEDS ORDERED: SODIUM BICARBONATE 8.4% JECT 50 MEQ/50 ML SYRINGE IVP ONE (14:30)
[2020-05-17] MEDS ORDERED: MAGNESIUM SULFATE IN WATER 100 ML IV ONE (15:42)
[2020-05-17 16:00] VITALS: BP_SYST 139
[2020-05-17 20:00] VITALS: BP_SYST 123
[2020-05-17] MEDS ORDERED: [UNRECOGNIZED DRUG - OTHER] IV SCH ×5 (21:00)
[2020-05-17] MEDS ORDERED: TPN NEPHRAMINE IV SCH ×5 (21:00)
[2020-05-17] MEDS ORDERED: TRACE ELEMENTS IV SCH ×5 (21:00)
[2020-05-17] MEDS ORDERED: MAGNESIUM SULFATE IV SCH ×5 (21:00)
[2020-05-17] MEDS: FAT EMULSIONS 250 ML IV SCH (21:44)
[2020-05-18] VITALS: BP_SYST 144
[2020-05-18] MEDS: D5NS 1,000 ML IV SCH ×3 (02:00→15:21)
[2020-05-18] MEDS: methylPREDNISolone SOD SUCC/PF 62.5 MG/ML VIAL IVP SCH ×3 (06:29→17:02)
[2020-05-18] MEDS: PIPERACILLIN/TAZO 2.25G/DEX-IS 50 ML IV SCH ×3 (06:36→23:15)
[2020-05-18] MEDS: INSULIN REGULAR, HUMAN 100 UNITS/ML, 10 ML VIAL (humuLIN R) SUBCUT PRN ×3 (06:38→18:31)
[2020-05-18] MEDS: LevALBUTEROL HCL 1.25 MG/0.5 ML *CONC.* VIAL.NEB (XOPENEX CONC.) INH SCH ×3 (07:14→23:48)
[2020-05-18 07:41] LABS: BASOPHILS % (AUTO) 0.2 % (0.0-2.0); EOSINOPHILS % (AUTO) 0.2 % (0.0-4.0); HEMATOCRIT 22.5 % (36-48); HEMOGLOBIN 7.7 g/dL (12.0-16.0); LYMPHOCYTES # (AUTO) 0.4 K/uL (1.0-5.5); LYMPHOCYTES % (AUTO) 4.9 % (20.5-51.5); MEAN CORPUSCULAR HEMOGLOBIN 31 pg (27-31); MEAN CORPUSCULAR HGB CONC 34 % (32-36); MEAN CORPUSCULAR VOLUME 91 fL (79.0-98.0); MONOCYTES # (AUTO) 0.1 K/uL (0.0-1.0); MONOCYTES % (AUTO) 1.4 % (1.7-9.3); NEUTROPHILS % (AUTO) 93.3 % (40.0-70.0); PLATELET COUNT (AUTO) 66 K/uL (130-430); RED BLOOD CELL COUNT(AUTO) 2.46 MIL/uL (4.2-6.2); RED CELL DISTRIBUTION WIDTH 18.4 % (9.0-15.0); WHITE BLOOD COUNT (AUTO) 7.5 K/uL (4.8-10.8)
[2020-05-18 08:00] VITALS: BP_SYST 149
[2020-05-18 08:04] LABS: ALANINE AMINOTRANSFERASE 46 U/L (12-78); ANION GAP 13 (5-15); ASPARTATE AMINOTRANSFERASE 37 U/L (10-37); CALCIUM 9.8 mg/dL (8.4-11.0); CHLORIDE 119 mmol/L (98-107); CREATININE 1.66 mg/dL (0.55-1.30); GLUCOSE 285 mg/dL (70-99); POTASSIUM 3.5 mmol/L (3.5-5.1); SODIUM SERUM 151 mmol/L (136-145); TOTAL BILIRUBIN 0.2 mg/dL (0.0-1.0); UREA NITROGEN, BLOOD 58 mg/dL (8-21)
[2020-05-18] MEDS: PANTOPRAZOLE SODIUM 40 MG/VIAL (PROTONIX) IVP SCH (09:03)
[2020-05-18] MEDS: FLUCONAZOLE 100 mg/ NS 50 ML IV SCH (11:29)
[2020-05-18 12:00] VITALS: BP_SYST 124
[2020-05-18 12:35] LABS: BILIRUBIN,URINE NEGATIVE (NEGATIVE); BLOOD, URINE 2+ (NEGATIVE); COLOR,URINE YELLOW (YELLOW); GLUCOSE,URINE 1+ (NEGATIVE); KETONES,URINE NEGATIVE (NEGATIVE); LEUKOCYTE ESTERASE ,URINE 2+ (NEGATIVE); NITRITE, URINE NEGATIVE (NEGATIVE); PH,URINE 5.5 (5.0-8.0); PROTEIN URINE TRACE (NEGATIVE); UROBILINOGEN,URINE 0.2 (0.2-1.0)
[2020-05-18 12:36] LABS: CLARITY/URINE SLIGHTLY HAZY (CLEAR)
[2020-05-18 13:27] LABS: BACTERIA,URINE FEW /HPF (None Seen); YEAST,URINE Few /HPF (None Seen)
[2020-05-18 16:00] VITALS: BP_SYST 132
[2020-05-18 16:53] VITALS: BP_SYST 124
[2020-05-18] MEDS: 0.45% NACL 1,000 ML IV SCH (19:45)
[2020-05-18] MEDS ORDERED: FUROSEMIDE 40 MG/4 ML VIAL IVP ONE (19:45)
[2020-05-18] MEDS: TRACE ELEMENTS IV SCH ×6 (21:00)
[2020-05-18] MEDS: POTASSIUM ACETATE IV SCH ×6 (21:00)
[2020-05-18] MEDS: FAT EMULSIONS 250 ML IV SCH (21:00)
[2020-05-18] MEDS: [UNRECOGNIZED DRUG - OTHER] IV SCH ×6 (21:00)
[2020-05-18] MEDS: TPN NEPHRAMINE IV SCH ×6 (21:00)
[2020-05-19] MEDS: methylPREDNISolone SOD SUCC/PF 62.5 MG/ML VIAL IVP SCH ×4 (00:01→17:25)
[2020-05-19 00:57] VITALS: BP_SYST 155
[2020-05-19] MEDS: LevALBUTEROL HCL 1.25 MG/0.5 ML *CONC.* VIAL.NEB (XOPENEX CONC.) INH SCH ×2 (06:03→15:57)
[2020-05-19] MEDS: PIPERACILLIN/TAZO 2.25G/DEX-IS 50 ML IV SCH ×2 (07:01→16:36)
[2020-05-19] MEDS: INSULIN REGULAR, HUMAN 100 UNITS/ML, 10 ML VIAL (humuLIN R) SUBCUT PRN ×3 (07:03→17:21)
[2020-05-19 07:44] LABS: BASOPHILS % (AUTO) 0.1 % (0.0-2.0); EOSINOPHILS % (AUTO) 0.1 % (0.0-4.0); HEMATOCRIT 23.8 % (36-48); HEMOGLOBIN 7.9 g/dL (12.0-16.0); LYMPHOCYTES # (AUTO) 0.4 K/uL (1.0-5.5); LYMPHOCYTES % (AUTO) 4.7 % (20.5-51.5); MEAN CORPUSCULAR HEMOGLOBIN 31 pg (27-31); MEAN CORPUSCULAR HGB CONC 33 % (32-36); MEAN CORPUSCULAR VOLUME 93 fL (79.0-98.0); MONOCYTES # (AUTO) 0.1 K/uL (0.0-1.0); MONOCYTES % (AUTO) 0.7 % (1.7-9.3); NEUTROPHILS # (AUTO) 7.5 K/uL (1.8-7.7); RED BLOOD CELL COUNT(AUTO) 2.58 MIL/uL (4.2-6.2); RED CELL DISTRIBUTION WIDTH 18.5 % (9.0-15.0); WHITE BLOOD COUNT (AUTO) 7.9 K/uL (4.8-10.8)
[2020-05-19 08:14] VITALS: BP_SYST 119
[2020-05-19 08:32] LABS: ALANINE AMINOTRANSFERASE 46 U/L (12-78); ALBUMIN 0.9 g/dL (3.4-4.8); ANION GAP 13 (5-15); ASPARTATE AMINOTRANSFERASE 34 U/L (10-37); CALCIUM 9.3 mg/dL (8.4-11.0); CHLORIDE 118 mmol/L (98-107); CREATININE 1.63 mg/dL (0.55-1.30); GLUCOSE 242 mg/dL (70-99); PHOSPHORUS 4.4 mg/dL (2.7-4.5); SODIUM SERUM 148 mmol/L (136-145); TOTAL BILIRUBIN 0.2 mg/dL (0.0-1.0); UREA NITROGEN, BLOOD 51 mg/dL (8-21)
[2020-05-19 09:20] LABS: PLATELET COUNT (AUTO) 49 K/uL (130-430)
[2020-05-19] MEDS: PANTOPRAZOLE SODIUM 40 MG/VIAL (PROTONIX) IVP SCH (09:20)
[2020-05-19] MEDS ORDERED: SODIUM BICARBONATE 8.4% JECT 50 MEQ/50 ML SYRINGE IVP ONE ×2 (10:30)
[2020-05-19 12:00] VITALS: BP_SYST 120
[2020-05-19] MEDS: FLUCONAZOLE 100 mg/ NS 50 ML IV SCH (12:22)
[2020-05-19] MEDS: POTASSIUM CHLORIDE 40 MEQ in NS 250 ML IV SCH ×2 (12:27→16:36)
[2020-05-19] MEDS: LevALBUTEROL HCL 1.25 MG/0.5 ML *CONC.* VIAL.NEB (XOPENEX CONC.) INH PRN (12:55)
[2020-05-19 14:30] LABS: NEUTROPHILS % (AUTO) 94.4 % (40.0-70.0)
[2020-05-19] MEDS: 0.45% NACL 1,000 ML IV SCH (15:45)
[2020-05-19 16:00] VITALS: BP_SYST 106
[2020-05-19] MEDS: POTASSIUM ACETATE IV SCH ×6 (20:35)
[2020-05-19] MEDS: [UNRECOGNIZED DRUG - OTHER] IV SCH ×6 (20:35)
[2020-05-19] MEDS: TPN NEPHRAMINE IV SCH ×6 (20:35)
[2020-05-19] MEDS: TRACE ELEMENTS IV SCH ×6 (20:35)
[2020-05-19] MEDS ORDERED: TRACE ELEMENTS IV SCH ×7 (21:00)
[2020-05-19] MEDS: FAT EMULSIONS 250 ML IV SCH (21:00)
[2020-05-19] MEDS ORDERED: POTASSIUM ACETATE IV SCH ×7 (21:00)
[2020-05-19] MEDS ORDERED: [UNRECOGNIZED DRUG - OTHER] IV SCH ×7 (21:00)
[2020-05-19] MEDS ORDERED: TPN NEPHRAMINE IV SCH ×7 (21:00)
[2020-05-19] MEDS ORDERED: cefTRIAXone 1 GM in D5W 50 ML IV SCH (22:15)
[2020-05-19 23:49] LABS: BILIRUBIN,URINE NEGATIVE (NEGATIVE); BLOOD, URINE 3+ (NEGATIVE); CLARITY/URINE CLOUDY (CLEAR); COLOR,URINE YELLOW (YELLOW); GLUCOSE,URINE TRACE (NEGATIVE); KETONES,URINE NEGATIVE (NEGATIVE); LEUKOCYTE ESTERASE ,URINE 3+ (NEGATIVE); NITRITE, URINE NEGATIVE (NEGATIVE); PH,URINE 5.5 (5.0-8.0); PROTEIN URINE TRACE (NEGATIVE); UROBILINOGEN,URINE 0.2 (0.2-1.0)
[2020-05-19 23:53] LABS: BACTERIA,URINE MANY /HPF (None Seen); RBC,URINE 50-80 /HPF (0-3); WBC,URINE 50-80 /HPF (0-3); YEAST,URINE Many /HPF (None Seen)
[2020-05-20] VITALS (12 sets, daily range): BP systolic 82–124
[2020-05-20] MEDS: LevALBUTEROL HCL 1.25 MG/0.5 ML *CONC.* VIAL.NEB (XOPENEX CONC.) INH SCH ×3 (00:17→15:00)
[2020-05-20] MEDS: methylPREDNISolone SOD SUCC/PF 62.5 MG/ML VIAL IVP SCH ×4 (06:35→18:19)
[2020-05-20] MEDS: PIPERACILLIN/TAZO 2.25G/DEX-IS 50 ML IV SCH ×2 (06:35→15:03)
[2020-05-20] MEDS: INSULIN REGULAR, HUMAN 100 UNITS/ML, 10 ML VIAL (humuLIN R) SUBCUT PRN ×2 (07:06→22:10)
[2020-05-20 08:01] LABS: INR 1.1 (0.8-1.2); PROTHROMBIN TIME 11.6 SECS (9.5-12.5)
[2020-05-20 09:02] LABS: ANION GAP 10 (5-15); CHLORIDE 117 mmol/L (98-107); POTASSIUM 4.3 mmol/L (3.5-5.1); SODIUM SERUM 148 mmol/L (136-145)
[2020-05-20] MEDS: PANTOPRAZOLE SODIUM 40 MG/VIAL (PROTONIX) IVP SCH (09:29)
[2020-05-20] MEDS: ALBUMIN HUMAN 25% 100 ML IV SCH ×2 (09:30→21:00)
[2020-05-20 09:42] LABS: ALANINE AMINOTRANSFERASE 63 U/L (12-78); ALBUMIN 0.9 g/dL (3.4-4.8); ASPARTATE AMINOTRANSFERASE 44 U/L (10-37); CALCIUM 10.1 mg/dL (8.4-11.0); CREATININE 1.66 mg/dL (0.55-1.30); GLUCOSE 248 mg/dL (70-99); TOTAL BILIRUBIN 0.2 mg/dL (0.0-1.0); UREA NITROGEN, BLOOD 54 mg/dL (8-21)
[2020-05-20 09:43] LABS: PHOSPHORUS 4.1 mg/dL (2.7-4.5)
[2020-05-20] MEDS: FUROSEMIDE 20 MG/2 ML VIAL IVP SCH ×2 (10:41→21:00)
[2020-05-20 10:48] LABS: TRIGLYCERIDES 120 mg/dL (30-150)
[2020-05-20 11:40] LABS: TOTAL IRON BIND. CAPACITY 119 ug/dL (250-450)
[2020-05-20] MEDS: FLUCONAZOLE 100 mg/ NS 50 ML IV SCH (12:52)
[2020-05-20 14:47] LABS: BASOPHILS % (AUTO) 0.5 % (0.0-2.0); HEMATOCRIT 22.2 % (36-48); HEMOGLOBIN 7.4 g/dL (12.0-16.0); LYMPHOCYTES # (AUTO) 0.3 K/uL (1.0-5.5); LYMPHOCYTES % (AUTO) 3.8 % (20.5-51.5); MEAN CORPUSCULAR HEMOGLOBIN 31 pg (27-31); MEAN CORPUSCULAR HGB CONC 34 % (32-36); MEAN CORPUSCULAR VOLUME 91 fL (79.0-98.0); MONOCYTES # (AUTO) 0.1 K/uL (0.0-1.0); MONOCYTES % (AUTO) 1.6 % (1.7-9.3); NEUTROPHILS # (AUTO) 7.7 K/uL (1.8-7.7); RED BLOOD CELL COUNT(AUTO) 2.43 MIL/uL (4.2-6.2); RED CELL DISTRIBUTION WIDTH 18.6 % (9.0-15.0); WHITE BLOOD COUNT (AUTO) 8.2 K/uL (4.8-10.8)
[2020-05-20] MEDS: 0.45% NACL 1,000 ML IV SCH (15:01)
[2020-05-20 15:25] LABS: PLATELET COUNT (AUTO) 41 K/uL (130-430)
[2020-05-20 15:36] LABS: NEUTROPHILS % (AUTO) 94.1 % (40.0-70.0)
[2020-05-20] MEDS ORDERED: SODIUM BICARBONATE 8.4% JECT 50 MEQ/50 ML SYRINGE IVP ONE (18:30)
[2020-05-20] MEDS ORDERED: SODIUM BICARBONATE 8.4% JECT 100 MEQ in D5W 1,000 ML IVP SCH (18:30)
[2020-05-20] MEDS ORDERED: SODIUM BICARBONATE 8.4% JECT 50 MEQ/50 ML SYRINGE ONE (20:12)
[2020-05-20] MEDS: MEROPENEM 500 MG in NS 50 ML IV SCH (21:00)
[2020-05-20] MEDS ORDERED: ALBUMIN HUMAN 25% 100 ML IV ONE (21:28)
[2020-05-21] VITALS (29 sets, daily range): BP systolic 82–171
[2020-05-21] MEDS: methylPREDNISolone SOD SUCC/PF 62.5 MG/ML VIAL IVP SCH ×5 (00:07→23:38)
[2020-05-21] MEDS: INSULIN REGULAR, HUMAN 100 UNITS/ML, 10 ML VIAL (humuLIN R) SUBCUT PRN ×3 (06:37→17:23)
[2020-05-21] MEDS ORDERED: CEFAZOLIN 1 GM IVPB PREMIX 50 ML IV ONE (08:00)
[2020-05-21] MEDS: LevALBUTEROL HCL 1.25 MG/0.5 ML *CONC.* VIAL.NEB (XOPENEX CONC.) INH SCH ×3 (08:25→16:22)
[2020-05-21] MEDS: PANTOPRAZOLE SODIUM 40 MG/VIAL (PROTONIX) IVP SCH (08:37)
[2020-05-21] MEDS: MEROPENEM 500 MG in NS 50 ML IV SCH (08:37)
[2020-05-21] MEDS ORDERED: *PPN PER PHARMACY XX PRN (09:15)
[2020-05-21] MEDS ORDERED: DEXTROSE 50% JECT 50 ML DISP.SYRIN IVP PRN (09:15)
[2020-05-21] MEDS: FLUCONAZOLE 100 mg/ NS 50 ML IV SCH (11:25)
[2020-05-21] MEDS: ALBUMIN HUMAN 25% 100 ML IV SCH ×2 (11:33→20:02)
[2020-05-21] MEDS: FUROSEMIDE 20 MG/2 ML VIAL IVP SCH ×2 (11:35→20:04)
[2020-05-21 12:27] LABS: BASOPHILS % (AUTO) 0.1 % (0.0-2.0); EOSINOPHILS % (AUTO) 0.2 % (0.0-4.0); HEMATOCRIT 29.4 % (36-48); HEMOGLOBIN 9.9 g/dL (12.0-16.0); LYMPHOCYTES # (AUTO) 0.3 K/uL (1.0-5.5); MEAN CORPUSCULAR HEMOGLOBIN 30 pg (27-31); MEAN CORPUSCULAR HGB CONC 34 % (32-36); MEAN CORPUSCULAR VOLUME 90 fL (79.0-98.0); MONOCYTES # (AUTO) 0.1 K/uL (0.0-1.0); MONOCYTES % (AUTO) 0.8 % (1.7-9.3); NEUTROPHILS # (AUTO) 8.6 K/uL (1.8-7.7); NEUTROPHILS % (AUTO) 95.9 % (40.0-70.0); RED BLOOD CELL COUNT(AUTO) 3.28 MIL/uL (4.2-6.2); RED CELL DISTRIBUTION WIDTH 15.7 % (9.0-15.0)
[2020-05-21 12:31] LABS: ANION GAP 11 (5-15); CALCIUM 10.4 mg/dL (8.4-11.0); CHLORIDE 113 mmol/L (98-107); CREATININE 1.91 mg/dL (0.55-1.30); GLUCOSE 321 mg/dL (70-99); PLATELET COUNT (AUTO) 25 K/uL (130-430); POTASSIUM 4.4 mmol/L (3.5-5.1); SODIUM SERUM 146 mmol/L (136-145); UREA NITROGEN, BLOOD 63 mg/dL (8-21)
[2020-05-21 12:38] LABS: ALANINE AMINOTRANSFERASE 125 U/L (12-78); ASPARTATE AMINOTRANSFERASE 188 U/L (10-37); PHOSPHORUS 4.5 mg/dL (2.7-4.5); TOTAL BILIRUBIN 0.7 mg/dL (0.0-1.0)
[2020-05-21] MEDS ORDERED: DEXTROSE 10%-WATER 500 ML IV SCH (13:00)
[2020-05-21 13:06] LABS: TRIGLYCERIDES 67 mg/dL (30-150)
[2020-05-21] MEDS: LEVOFLOXACIN 250 MG/D5W 50 ML IV SCH (20:02)
[2020-05-21] MEDS ORDERED: MVI IV SCH ×7 (21:00)
[2020-05-21] MEDS ORDERED: TPN NEPHRAMINE IV SCH ×7 (21:00)
[2020-05-21] MEDS ORDERED: MAGNESIUM SULFATE IV SCH ×7 (21:00)
[2020-05-21] MEDS ORDERED: [UNRECOGNIZED DRUG - OTHER] IV SCH ×7 (21:00)
[2020-05-22] VITALS (31 sets, daily range): BP systolic 129–165
[2020-05-22 05:35] LABS: INR 1.3 (0.8-1.2); PROTHROMBIN TIME 13.4 SECS (9.5-12.5)
[2020-05-22 05:36] LABS: BASOPHILS % (AUTO) 0.1 % (0.0-2.0); HEMATOCRIT 23.4 % (36-48); HEMOGLOBIN 7.9 g/dL (12.0-16.0); LYMPHOCYTES # (AUTO) 0.3 K/uL (1.0-5.5); LYMPHOCYTES % (AUTO) 4.6 % (20.5-51.5); MEAN CORPUSCULAR HEMOGLOBIN 30 pg (27-31); MEAN CORPUSCULAR HGB CONC 34 % (32-36); MEAN CORPUSCULAR VOLUME 89 fL (79.0-98.0); MONOCYTES # (AUTO) 0.1 K/uL (0.0-1.0); MONOCYTES % (AUTO) 0.9 % (1.7-9.3); NEUTROPHILS # (AUTO) 7.1 K/uL (1.8-7.7); NEUTROPHILS % (AUTO) 94.4 % (40.0-70.0); RED BLOOD CELL COUNT(AUTO) 2.63 MIL/uL (4.2-6.2); RED CELL DISTRIBUTION WIDTH 15.4 % (9.0-15.0); WHITE BLOOD COUNT (AUTO) 7.5 K/uL (4.8-10.8)
[2020-05-22 05:44] LABS: ALANINE AMINOTRANSFERASE 139 U/L (12-78); ALBUMIN 2.8 g/dL (3.4-4.8); ANION GAP 15 (5-15); ASPARTATE AMINOTRANSFERASE 153 U/L (10-37); CALCIUM 10.4 mg/dL (8.4-11.0); CHLORIDE 108 mmol/L (98-107); CREATININE 1.84 mg/dL (0.55-1.30); GLUCOSE 129 mg/dL (70-99); PHOSPHORUS 4.2 mg/dL (2.7-4.5); POTASSIUM 3.3 mmol/L (3.5-5.1); SODIUM SERUM 147 mmol/L (136-145); TOTAL BILIRUBIN 0.8 mg/dL (0.0-1.0); UREA NITROGEN, BLOOD 64 mg/dL (8-21)
[2020-05-22 06:11] LABS: PLATELET COUNT (AUTO) 19 K/uL (130-430)
[2020-05-22] MEDS: methylPREDNISolone SOD SUCC/PF 62.5 MG/ML VIAL IVP SCH ×3 (06:57→18:00)
[2020-05-22] MEDS ORDERED: CEFAZOLIN 1 GM IVPB PREMIX 50 ML IV ONE (07:00)
[2020-05-22] MEDS ORDERED: SIMETHICONE 40 MG/0.6 ML ML ONE (07:08)
[2020-05-22] MEDS ORDERED: fentaNYL CITRATE/PF 100 MCG/2 ML AMP ONE (07:08)
[2020-05-22] MEDS ORDERED: BENZOCAINE 20% 0.5mL UD SPRAY MM ONE (07:08)
[2020-05-22] MEDS ORDERED: MIDAZOLAM HCL 5 MG/5 ML VIAL ONE (07:08)
[2020-05-22] MEDS: LevALBUTEROL HCL 1.25 MG/0.5 ML *CONC.* VIAL.NEB (XOPENEX CONC.) INH SCH ×2 (07:27→15:22)
[2020-05-22] MEDS: ALBUMIN HUMAN 25% 100 ML IV SCH ×2 (08:53→21:03)
[2020-05-22] MEDS: PANTOPRAZOLE SODIUM 40 MG/VIAL (PROTONIX) IVP SCH (08:57)
[2020-05-22] MEDS: FUROSEMIDE 20 MG/2 ML VIAL IVP SCH ×2 (09:54→21:48)
[2020-05-22 10:22] LABS: BASOPHILS % (AUTO) 0.1 % (0.0-2.0); EOSINOPHILS % (AUTO) 0.1 % (0.0-4.0); HEMOGLOBIN 7.4 g/dL (12.0-16.0); LYMPHOCYTES # (AUTO) 0.3 K/uL (1.0-5.5); LYMPHOCYTES % (AUTO) 3.4 % (20.5-51.5); MEAN CORPUSCULAR HEMOGLOBIN 30 pg (27-31); MEAN CORPUSCULAR HGB CONC 34 % (32-36); MEAN CORPUSCULAR VOLUME 88 fL (79.0-98.0); MONOCYTES # (AUTO) 0.1 K/uL (0.0-1.0); MONOCYTES % (AUTO) 1.3 % (1.7-9.3); NEUTROPHILS # (AUTO) 8.7 K/uL (1.8-7.7); NEUTROPHILS % (AUTO) 95.1 % (40.0-70.0); PLATELET COUNT (AUTO) 75 K/uL (130-430); RED BLOOD CELL COUNT(AUTO) 2.46 MIL/uL (4.2-6.2); RED CELL DISTRIBUTION WIDTH 15.6 % (9.0-15.0); WHITE BLOOD COUNT (AUTO) 9.1 K/uL (4.8-10.8)
[2020-05-22 10:46] LABS: HEMATOCRIT 21.7 % (36-48)
[2020-05-22] MEDS: MORPHINE 2 MG/ML INJ. SYRINGE IVP PRN (10:57)
[2020-05-22] MEDS: FLUCONAZOLE 100 mg/ NS 50 ML IV SCH (11:35)
[2020-05-22] MEDS: INSULIN REGULAR, HUMAN 100 UNITS/ML, 10 ML VIAL (humuLIN R) SUBCUT PRN (11:45)
[2020-05-22 20:57] LABS: FERRITIN 1232 ng/mL (15-150)
[2020-05-22] MEDS: POTASSIUM ACETATE IV SCH ×8 (21:03)
[2020-05-22] MEDS: TPN NEPHRAMINE IV SCH ×8 (21:03)
[2020-05-22] MEDS: MAGNESIUM SULFATE IV SCH ×8 (21:03)
[2020-05-22] MEDS: [UNRECOGNIZED DRUG - OTHER] IV SCH ×8 (21:03)
[2020-05-22] MEDS: LEVOFLOXACIN 250 MG/D5W 50 ML IV SCH (21:03)
[2020-05-23] VITALS (30 sets, daily range): BP systolic 136–176
[2020-05-23] MEDS: MORPHINE 2 MG/ML INJ. SYRINGE IVP PRN ×2 (00:18→10:20)
[2020-05-23] MEDS: methylPREDNISolone SOD SUCC/PF 62.5 MG/ML VIAL IVP SCH ×5 (00:24→23:46)
[2020-05-23] MEDS: INSULIN REGULAR, HUMAN 100 UNITS/ML, 10 ML VIAL (humuLIN R) SUBCUT PRN ×5 (00:26→23:57)
[2020-05-23 06:38] LABS: ALANINE AMINOTRANSFERASE 123 U/L (12-78); ALBUMIN 3.2 g/dL (3.4-4.8); ANION GAP 15 (5-15); ASPARTATE AMINOTRANSFERASE 116 U/L (10-37); CALCIUM 10.3 mg/dL (8.4-11.0); CHLORIDE 106 mmol/L (98-107); CREATININE 1.93 mg/dL (0.55-1.30); GLUCOSE 178 mg/dL (70-99); PHOSPHORUS 5.1 mg/dL (2.7-4.5); SODIUM SERUM 144 mmol/L (136-145); TOTAL BILIRUBIN 1.2 mg/dL (0.0-1.0); UREA NITROGEN, BLOOD 74 mg/dL (8-21)
[2020-05-23 06:51] LABS: BASOPHILS % (AUTO) 0.1 % (0.0-2.0); HEMATOCRIT 25.8 % (36-48); HEMOGLOBIN 8.9 g/dL (12.0-16.0); LYMPHOCYTES # (AUTO) 0.3 K/uL (1.0-5.5); LYMPHOCYTES % (AUTO) 3.4 % (20.5-51.5); MEAN CORPUSCULAR HEMOGLOBIN 30 pg (27-31); MEAN CORPUSCULAR HGB CONC 35 % (32-36); MEAN CORPUSCULAR VOLUME 88 fL (79.0-98.0); MONOCYTES # (AUTO) 0.1 K/uL (0.0-1.0); MONOCYTES % (AUTO) 0.6 % (1.7-9.3); NEUTROPHILS # (AUTO) 9.1 K/uL (1.8-7.7); NEUTROPHILS % (AUTO) 95.9 % (40.0-70.0); PLATELET COUNT (AUTO) 63 K/uL (130-430); RED BLOOD CELL COUNT(AUTO) 2.93 MIL/uL (4.2-6.2); RED CELL DISTRIBUTION WIDTH 14.8 % (9.0-15.0); WHITE BLOOD COUNT (AUTO) 9.5 K/uL (4.8-10.8)
[2020-05-23] MEDS: LevALBUTEROL HCL 1.25 MG/0.5 ML *CONC.* VIAL.NEB (XOPENEX CONC.) INH SCH ×3 (07:22→23:24)
[2020-05-23] MEDS ORDERED: MIDAZOLAM HCL 5 MG/5 ML VIAL ONE (07:58)
[2020-05-23] MEDS ORDERED: fentaNYL CITRATE/PF 100 MCG/2 ML AMP ONE (07:58)
[2020-05-23] MEDS ORDERED: SIMETHICONE 40 MG/0.6 ML ML ONE (07:58)
[2020-05-23] MEDS ORDERED: CEFAZOLIN 1 GM IVPB PREMIX 50 ML IV ONE (08:08)
[2020-05-23] MEDS: PANTOPRAZOLE SODIUM 40 MG/VIAL (PROTONIX) IVP SCH (08:53)
[2020-05-23] MEDS: BALSAM PERU/CASTOR OIL 60 GM OINT...G. TP SCH (08:54)
[2020-05-23] MEDS: ALBUMIN HUMAN 25% 100 ML IV SCH ×2 (09:35→21:00)
[2020-05-23] MEDS: POTASSIUM CHLORIDE 20 MEQ/PKT PACKET GT SCH ×2 (10:17→12:24)
[2020-05-23] MEDS: FUROSEMIDE 20 MG/2 ML VIAL IVP SCH ×2 (10:18→21:00)
[2020-05-23] MEDS ORDERED: COMMUNICATION ORDER XX ONE (12:30)
[2020-05-23 13:38] LABS: INR 1.4 (0.8-1.2); PROTHROMBIN TIME 13.9 SECS (9.5-12.5)
[2020-05-23] MEDS ORDERED: NS IV ONE (14:00)
[2020-05-23] MEDS ORDERED: DESMOPRESSIN ACETATE IV ONE (14:00)
[2020-05-23] MEDS: LORazepam 2 MG/ML VIAL IVP PRN (14:30)
[2020-05-23 17:16] LABS: BASOPHILS % (AUTO) 0.1 % (0.0-2.0); EOSINOPHILS % (AUTO) 0.1 % (0.0-4.0); HEMATOCRIT 22.7 % (36-48); HEMOGLOBIN 7.8 g/dL (12.0-16.0); LYMPHOCYTES # (AUTO) 0.4 K/uL (1.0-5.5); LYMPHOCYTES % (AUTO) 4.5 % (20.5-51.5); MEAN CORPUSCULAR HEMOGLOBIN 30 pg (27-31); MEAN CORPUSCULAR HGB CONC 35 % (32-36); MEAN CORPUSCULAR VOLUME 88 fL (79.0-98.0); MONOCYTES # (AUTO) 0.1 K/uL (0.0-1.0); MONOCYTES % (AUTO) 1.3 % (1.7-9.3); NEUTROPHILS # (AUTO) 8.1 K/uL (1.8-7.7); RED BLOOD CELL COUNT(AUTO) 2.57 MIL/uL (4.2-6.2); RED CELL DISTRIBUTION WIDTH 14.5 % (9.0-15.0); WHITE BLOOD COUNT (AUTO) 8.6 K/uL (4.8-10.8)
[2020-05-23 17:21] LABS: PLATELET COUNT (AUTO) 47 K/uL (130-430)
[2020-05-23] MEDS ORDERED: PHYTONADIONE 10 MG in NS 50 ML IV ONE (17:45)
[2020-05-23] MEDS: LEVOFLOXACIN 250 MG/D5W 50 ML IV SCH (20:00)
[2020-05-23] MEDS: [UNRECOGNIZED DRUG - OTHER] IV SCH ×8 (20:39)
[2020-05-23] MEDS: TPN NEPHRAMINE IV SCH ×8 (20:39)
[2020-05-23] MEDS: MAGNESIUM SULFATE IV SCH ×8 (20:39)
[2020-05-23] MEDS: POTASSIUM ACETATE IV SCH ×8 (20:39)
[2020-05-23] MEDS ORDERED: [UNRECOGNIZED DRUG - OTHER] IV SCH ×10 (21:00)
[2020-05-23] MEDS ORDERED: POTASSIUM ACETATE IV SCH ×10 (21:00)
[2020-05-23] MEDS ORDERED: TPN NEPHRAMINE IV SCH ×10 (21:00)
[2020-05-23] MEDS ORDERED: MAGNESIUM SULFATE IV SCH ×10 (21:00)
[2020-05-24] VITALS (28 sets, daily range): BP systolic 142–196
[2020-05-24] MEDS: LORazepam 2 MG/ML VIAL IVP PRN ×2 (04:19→12:43)
[2020-05-24] MEDS: methylPREDNISolone SOD SUCC/PF 62.5 MG/ML VIAL IVP SCH ×4 (06:14→23:02)
[2020-05-24] MEDS ORDERED: hydrALAZINE HCL 20 MG/ML VIAL ONE (06:23)
[2020-05-24] MEDS: INSULIN REGULAR, HUMAN 100 UNITS/ML, 10 ML VIAL (humuLIN R) SUBCUT PRN ×4 (06:39→23:39)
[2020-05-24 06:58] LABS: BASOPHILS % (AUTO) 0.1 % (0.0-2.0); EOSINOPHILS % (AUTO) 0.2 % (0.0-4.0); HEMATOCRIT 26.9 % (36-48); HEMOGLOBIN 9.3 g/dL (12.0-16.0); LYMPHOCYTES # (AUTO) 0.4 K/uL (1.0-5.5); LYMPHOCYTES % (AUTO) 3.1 % (20.5-51.5); MEAN CORPUSCULAR HEMOGLOBIN 31 pg (27-31); MEAN CORPUSCULAR HGB CONC 35 % (32-36); MEAN CORPUSCULAR VOLUME 89 fL (79.0-98.0); MONOCYTES # (AUTO) 0.1 K/uL (0.0-1.0); MONOCYTES % (AUTO) 0.9 % (1.7-9.3); NEUTROPHILS # (AUTO) 10.9 K/uL (1.8-7.7); NEUTROPHILS % (AUTO) 95.7 % (40.0-70.0); PLATELET COUNT (AUTO) 110 K/uL (130-430); RED BLOOD CELL COUNT(AUTO) 3.02 MIL/uL (4.2-6.2); RED CELL DISTRIBUTION WIDTH 14.5 % (9.0-15.0); WHITE BLOOD COUNT (AUTO) 11.3 K/uL (4.8-10.8)
[2020-05-24 08:07] LABS: ALANINE AMINOTRANSFERASE 73 U/L (12-78); ALBUMIN 3.6 g/dL (3.4-4.8); ANION GAP 15 (5-15); CALCIUM 10.4 mg/dL (8.4-11.0); CHLORIDE 104 mmol/L (98-107); CREATININE 1.89 mg/dL (0.55-1.30); GLUCOSE 288 mg/dL (70-99); POTASSIUM 3.7 mmol/L (3.5-5.1); SODIUM SERUM 143 mmol/L (136-145); THYROID STIMULATING HORMONE 3.01 uIu/mL (0.36-3.74); TOTAL BILIRUBIN 1.5 mg/dL (0.0-1.0); UREA NITROGEN, BLOOD 77 mg/dL (8-21)
[2020-05-24] MEDS: LevALBUTEROL HCL 1.25 MG/0.5 ML *CONC.* VIAL.NEB (XOPENEX CONC.) INH SCH ×3 (08:25→23:00)
[2020-05-24 08:46] LABS: ASPARTATE AMINOTRANSFERASE 53 U/L (10-37)
[2020-05-24] MEDS: PANTOPRAZOLE SODIUM 40 MG/VIAL (PROTONIX) IVP SCH (10:02)
[2020-05-24] MEDS: ALBUMIN HUMAN 25% 100 ML IV SCH ×2 (10:02→21:00)
[2020-05-24] MEDS: FUROSEMIDE 20 MG/2 ML VIAL IVP SCH ×2 (10:03→21:00)
[2020-05-24] MEDS: BALSAM PERU/CASTOR OIL 60 GM OINT...G. TP SCH (10:03)
[2020-05-24] MEDS: hydrALAZINE HCL 20 MG/ML VIAL IVP PRN (10:04)
[2020-05-24] MEDS ORDERED: COMMUNICATION ORDER XX ONE (10:15)
[2020-05-24] MEDS: LEVOFLOXACIN 250 MG/D5W 50 ML IV SCH (20:00)
[2020-05-24] MEDS ORDERED: [UNRECOGNIZED DRUG - OTHER] IV SCH ×9 (21:00)
[2020-05-24] MEDS: hydrALAZINE HCL 25 MG TABLET GT SCH (21:00)
[2020-05-24] MEDS ORDERED: MAGNESIUM SULFATE IV SCH ×9 (21:00)
[2020-05-24] MEDS ORDERED: POTASSIUM ACETATE IV SCH ×9 (21:00)
[2020-05-24] MEDS ORDERED: TPN NEPHRAMINE IV SCH ×9 (21:00)
[2020-05-25] VITALS (31 sets, daily range): BP systolic 136–181
[2020-05-25] MEDS: methylPREDNISolone SOD SUCC/PF 62.5 MG/ML VIAL IVP SCH ×3 (06:11→21:33)
[2020-05-25 06:19] LABS: INR 1.3 (0.8-1.2); PROTHROMBIN TIME 12.8 SECS (9.5-12.5)
[2020-05-25] MEDS: hydrALAZINE HCL 20 MG/ML VIAL IVP PRN ×2 (06:22→22:23)
[2020-05-25 06:28] LABS: BASOPHILS % (AUTO) 0.3 % (0.0-2.0); HEMATOCRIT 25.3 % (36-48); HEMOGLOBIN 8.6 g/dL (12.0-16.0); LYMPHOCYTES # (AUTO) 0.2 K/uL (1.0-5.5); LYMPHOCYTES % (AUTO) 1.6 % (20.5-51.5); MEAN CORPUSCULAR HEMOGLOBIN 31 pg (27-31); MEAN CORPUSCULAR HGB CONC 34 % (32-36); MEAN CORPUSCULAR VOLUME 90 fL (79.0-98.0); MONOCYTES # (AUTO) 0.1 K/uL (0.0-1.0); MONOCYTES % (AUTO) 0.9 % (1.7-9.3); NEUTROPHILS # (AUTO) 10.3 K/uL (1.8-7.7); NEUTROPHILS % (AUTO) 97.2 % (40.0-70.0); PLATELET COUNT (AUTO) 63 K/uL (130-430); RED BLOOD CELL COUNT(AUTO) 2.82 MIL/uL (4.2-6.2); RED CELL DISTRIBUTION WIDTH 14.6 % (9.0-15.0); WHITE BLOOD COUNT (AUTO) 10.6 K/uL (4.8-10.8)
[2020-05-25] MEDS: INSULIN REGULAR, HUMAN 100 UNITS/ML, 10 ML VIAL (humuLIN R) SUBCUT PRN ×3 (06:43→17:42)
[2020-05-25] MEDS: LevALBUTEROL HCL 1.25 MG/0.5 ML *CONC.* VIAL.NEB (XOPENEX CONC.) INH SCH ×2 (07:31→23:22)
[2020-05-25] MEDS: BALSAM PERU/CASTOR OIL 60 GM OINT...G. TP SCH (08:02)
[2020-05-25] MEDS: hydrALAZINE HCL 25 MG TABLET GT SCH ×2 (08:11→21:32)
[2020-05-25] MEDS: PANTOPRAZOLE SODIUM 40 MG/VIAL (PROTONIX) IVP SCH (08:11)
[2020-05-25] MEDS: MICAFUNGIN SODIUM 100 MG in NS 100 ML IV SCH (16:49)
[2020-05-25] MEDS: LEVOFLOXACIN 250 MG/D5W 50 ML IV SCH (20:00)
[2020-05-25] MEDS: INSULIN GLARGINE 100 UNITS/ML 10 ML VIAL SUBCUT SCH (21:21)
[2020-05-26] VITALS (30 sets, daily range): BP systolic 133–184
[2020-05-26] MEDS: INSULIN REGULAR, HUMAN 100 UNITS/ML, 10 ML VIAL (humuLIN R) SUBCUT PRN ×3 (00:11→17:57)
[2020-05-26 06:12] LABS: HEMOGLOBIN 8.5 g/dL (12.0-16.0); MEAN CORPUSCULAR HGB CONC 33 % (32-36); RED BLOOD CELL COUNT(AUTO) 2.85 MIL/uL (4.2-6.2)
[2020-05-26 06:40] LABS: HEMATOCRIT 25.6 % (36-48); INR 1.2 (0.8-1.2); LYMPHOCYTES # (AUTO) 0.2 K/uL (1.0-5.5); LYMPHOCYTES % (AUTO) 1.6 % (20.5-51.5); MEAN CORPUSCULAR HEMOGLOBIN 30 pg (27-31); MEAN CORPUSCULAR VOLUME 90 fL (79.0-98.0); MONOCYTES # (AUTO) 0.2 K/uL (0.0-1.0); MONOCYTES % (AUTO) 1.7 % (1.7-9.3); NEUTROPHILS # (AUTO) 11.1 K/uL (1.8-7.7); NEUTROPHILS % (AUTO) 96.7 % (40.0-70.0); PLATELET COUNT (AUTO) 57 K/uL (130-430); PROTHROMBIN TIME 12.3 SECS (9.5-12.5); RED CELL DISTRIBUTION WIDTH 14.3 % (9.0-15.0); WHITE BLOOD COUNT (AUTO) 11.5 K/uL (4.8-10.8)
[2020-05-26 06:42] LABS: ALANINE AMINOTRANSFERASE 68 U/L (12-78); ALBUMIN 3.5 g/dL (3.4-4.8); ASPARTATE AMINOTRANSFERASE 45 U/L (10-37); CREATININE 1.56 mg/dL (0.55-1.30); GLUCOSE 241 mg/dL (70-99); SODIUM SERUM 149 mmol/L (136-145); TOTAL BILIRUBIN 1.4 mg/dL (0.0-1.0); UREA NITROGEN, BLOOD 82 mg/dL (8-21)
[2020-05-26 07:07] LABS: ANION GAP 14 (5-15); CHLORIDE 108 mmol/L (98-107)
[2020-05-26] MEDS: methylPREDNISolone SOD SUCC/PF 62.5 MG/ML VIAL IVP SCH ×3 (07:08→22:41)
[2020-05-26] MEDS: hydrALAZINE HCL 25 MG TABLET GT SCH ×3 (07:09→22:42)
[2020-05-26 07:26] LABS: POTASSIUM 2.9 mmol/L (3.5-5.1)
[2020-05-26] MEDS: LevALBUTEROL HCL 1.25 MG/0.5 ML *CONC.* VIAL.NEB (XOPENEX CONC.) INH SCH ×3 (08:02→23:31)
[2020-05-26] MEDS: BALSAM PERU/CASTOR OIL 60 GM OINT...G. TP SCH (08:50)
[2020-05-26] MEDS ORDERED: POTASSIUM CHLORIDE 20 MEQ/PKT PACKET ONE ×2 (08:50→13:22)
[2020-05-26] MEDS: PANTOPRAZOLE SODIUM 40 MG/VIAL (PROTONIX) IVP SCH (08:50)
[2020-05-26] MEDS: POTASSIUM CHLORIDE 20 MEQ/PKT PACKET GT SCH ×2 (09:12→13:22)
[2020-05-26] MEDS: MICAFUNGIN SODIUM 100 MG in NS 100 ML IV SCH (16:00)
[2020-05-26] MEDS: LORazepam 2 MG/ML VIAL IVP PRN (17:01)
[2020-05-26] MEDS: LEVOFLOXACIN 250 MG/D5W 50 ML IV SCH (20:07)
[2020-05-26] MEDS: INSULIN GLARGINE 100 UNITS/ML 10 ML VIAL SUBCUT SCH (20:22)
[2020-05-27] VITALS (28 sets, daily range): BP systolic 121–178
[2020-05-27] MEDS: INSULIN REGULAR, HUMAN 100 UNITS/ML, 10 ML VIAL (humuLIN R) SUBCUT PRN ×3 (00:38→17:37)
[2020-05-27 06:35] LABS: BASOPHILS % (AUTO) 0.1 % (0.0-2.0); HEMATOCRIT 26.4 % (36-48); HEMOGLOBIN 8.7 g/dL (12.0-16.0); LYMPHOCYTES # (AUTO) 0.2 K/uL (1.0-5.5); LYMPHOCYTES % (AUTO) 1.3 % (20.5-51.5); MEAN CORPUSCULAR HEMOGLOBIN 30 pg (27-31); MEAN CORPUSCULAR HGB CONC 33 % (32-36); MEAN CORPUSCULAR VOLUME 91 fL (79.0-98.0); MONOCYTES # (AUTO) 0.4 K/uL (0.0-1.0); MONOCYTES % (AUTO) 3.1 % (1.7-9.3); NEUTROPHILS # (AUTO) 13.2 K/uL (1.8-7.7); NEUTROPHILS % (AUTO) 95.5 % (40.0-70.0); PLATELET COUNT (AUTO) 66 K/uL (130-430); RED BLOOD CELL COUNT(AUTO) 2.89 MIL/uL (4.2-6.2); RED CELL DISTRIBUTION WIDTH 14.8 % (9.0-15.0); WHITE BLOOD COUNT (AUTO) 13.9 K/uL (4.8-10.8)
[2020-05-27 07:05] LABS: ANION GAP 12 (5-15); CALCIUM 11.3 mg/dL (8.4-11.0); CHLORIDE 114 mmol/L (98-107); CREATININE 1.55 mg/dL (0.55-1.30); GLUCOSE 229 mg/dL (70-99); POTASSIUM 3.7 mmol/L (3.5-5.1); SODIUM SERUM 153 mmol/L (136-145); UREA NITROGEN, BLOOD 86 mg/dL (8-21)
[2020-05-27] MEDS: methylPREDNISolone SOD SUCC/PF 62.5 MG/ML VIAL IVP SCH ×3 (07:15→22:47)
[2020-05-27] MEDS: hydrALAZINE HCL 25 MG TABLET GT SCH ×3 (07:16→22:46)
[2020-05-27] MEDS: LevALBUTEROL HCL 1.25 MG/0.5 ML *CONC.* VIAL.NEB (XOPENEX CONC.) INH SCH ×2 (07:30→15:30)
[2020-05-27] MEDS: BALSAM PERU/CASTOR OIL 60 GM OINT...G. TP SCH (08:43)
[2020-05-27] MEDS: PANTOPRAZOLE SODIUM 40 MG/VIAL (PROTONIX) IVP SCH (08:43)
[2020-05-27] MEDS ORDERED: METOCLOPRAMIDE HCL 10 MG/2 ML VIAL IVP ONE (08:45)
[2020-05-27] MEDS: METOCLOPRAMIDE HCL 10 MG/2 ML VIAL IVP SCH ×2 (13:00→17:37)
[2020-05-27] MEDS: MICAFUNGIN SODIUM 100 MG in NS 100 ML IV SCH (16:17)
[2020-05-27] MEDS: LEVOFLOXACIN 250 MG/D5W 50 ML IV SCH (19:25)
[2020-05-27] MEDS: INSULIN GLARGINE 100 UNITS/ML 10 ML VIAL SUBCUT SCH (22:15)
[2020-05-28] VITALS (25 sets, daily range): BP systolic 128–169
[2020-05-28] MEDS: LevALBUTEROL HCL 1.25 MG/0.5 ML *CONC.* VIAL.NEB (XOPENEX CONC.) INH SCH ×4 (00:06→23:18)
[2020-05-28] MEDS ORDERED: METOCLOPRAMIDE HCL 10 MG/2 ML VIAL ONE ×4 (00:26→23:33)
[2020-05-28] MEDS: INSULIN REGULAR, HUMAN 100 UNITS/ML, 10 ML VIAL (humuLIN R) SUBCUT PRN ×5 (00:57→23:28)
[2020-05-28] MEDS: METOCLOPRAMIDE HCL 10 MG/2 ML VIAL IVP SCH ×5 (00:58→23:34)
[2020-05-28 05:56] LABS: BASOPHILS % (AUTO) 0.1 % (0.0-2.0); HEMATOCRIT 25.9 % (36-48); HEMOGLOBIN 8.5 g/dL (12.0-16.0); LYMPHOCYTES # (AUTO) 0.2 K/uL (1.0-5.5); MEAN CORPUSCULAR HEMOGLOBIN 30 pg (27-31); MEAN CORPUSCULAR HGB CONC 33 % (32-36); MEAN CORPUSCULAR VOLUME 92 fL (79.0-98.0); MONOCYTES # (AUTO) 0.5 K/uL (0.0-1.0); MONOCYTES % (AUTO) 3.4 % (1.7-9.3); NEUTROPHILS % (AUTO) 95.5 % (40.0-70.0); PLATELET COUNT (AUTO) 102 K/uL (130-430); RED BLOOD CELL COUNT(AUTO) 2.83 MIL/uL (4.2-6.2); RED CELL DISTRIBUTION WIDTH 14.6 % (9.0-15.0); WHITE BLOOD COUNT (AUTO) 15.7 K/uL (4.8-10.8)
[2020-05-28] MEDS: methylPREDNISolone SOD SUCC/PF 62.5 MG/ML VIAL IVP SCH ×3 (07:26→21:54)
[2020-05-28] MEDS: hydrALAZINE HCL 25 MG TABLET GT SCH ×3 (07:26→21:53)
[2020-05-28] MEDS: BALSAM PERU/CASTOR OIL 60 GM OINT...G. TP SCH (08:42)
[2020-05-28] MEDS: PANTOPRAZOLE SODIUM 40 MG/VIAL (PROTONIX) IVP SCH (08:45)
[2020-05-28] MEDS: MICAFUNGIN SODIUM 100 MG in NS 100 ML IV SCH (15:29)
[2020-05-28] MEDS: INSULIN GLARGINE 100 UNITS/ML 10 ML VIAL SUBCUT SCH (22:05)
[2020-05-29] VITALS (27 sets, daily range): BP systolic 90–150
[2020-05-29] MEDS: hydrALAZINE HCL 25 MG TABLET GT SCH ×3 (06:00→22:00)
[2020-05-29] MEDS ORDERED: METOCLOPRAMIDE HCL 10 MG/2 ML VIAL ONE ×3 (06:28→17:20)
[2020-05-29] MEDS: methylPREDNISolone SOD SUCC/PF 62.5 MG/ML VIAL IVP SCH ×3 (06:29→21:41)
[2020-05-29] MEDS: INSULIN REGULAR, HUMAN 100 UNITS/ML, 10 ML VIAL (humuLIN R) SUBCUT PRN ×3 (06:38→17:34)
[2020-05-29 06:42] LABS: BASOPHILS # (AUTO) 0.1 K/uL (0.0-0.2); BASOPHILS % (AUTO) 0.4 % (0.0-2.0); EOSINOPHILS # (AUTO) 0.5 K/uL (0.0-0.4); EOSINOPHILS % (AUTO) 3.4 % (0.0-4.0); HEMATOCRIT 24.9 % (36-48); HEMOGLOBIN 8.3 g/dL (12.0-16.0); LYMPHOCYTES # (AUTO) 0.3 K/uL (1.0-5.5); LYMPHOCYTES % (AUTO) 2.1 % (20.5-51.5); MEAN CORPUSCULAR HEMOGLOBIN 31 pg (27-31); MEAN CORPUSCULAR HGB CONC 33 % (32-36); MEAN CORPUSCULAR VOLUME 93 fL (79.0-98.0); MONOCYTES # (AUTO) 0.7 K/uL (0.0-1.0); MONOCYTES % (AUTO) 4.9 % (1.7-9.3); NEUTROPHILS # (AUTO) 12.5 K/uL (1.8-7.7); NEUTROPHILS % (AUTO) 89.2 % (40.0-70.0); PLATELET COUNT (AUTO) 189 K/uL (130-430); RED BLOOD CELL COUNT(AUTO) 2.69 MIL/uL (4.2-6.2); RED CELL DISTRIBUTION WIDTH 15.3 % (9.0-15.0)
[2020-05-29] MEDS: METOCLOPRAMIDE HCL 10 MG/2 ML VIAL IVP SCH ×3 (06:48→17:21)
[2020-05-29 06:52] LABS: ALANINE AMINOTRANSFERASE 84 U/L (12-78); ALBUMIN 2.4 g/dL (3.4-4.8); ANION GAP 9 (5-15); ASPARTATE AMINOTRANSFERASE 43 U/L (10-37); CALCIUM 9.6 mg/dL (8.4-11.0); CREATININE 1.48 mg/dL (0.55-1.30); GLUCOSE 215 mg/dL (70-99); TOTAL BILIRUBIN 0.8 mg/dL (0.0-1.0); UREA NITROGEN, BLOOD 87 mg/dL (8-21)
[2020-05-29 07:20] LABS: CHLORIDE 123 mmol/L (98-107); POTASSIUM 2.8 mmol/L (3.5-5.1); SODIUM SERUM 163 mmol/L (136-145)
[2020-05-29] MEDS: LevALBUTEROL HCL 1.25 MG/0.5 ML *CONC.* VIAL.NEB (XOPENEX CONC.) INH SCH ×3 (07:47→23:55)
[2020-05-29] MEDS: BALSAM PERU/CASTOR OIL 60 GM OINT...G. TP SCH (08:08)
[2020-05-29] MEDS: PANTOPRAZOLE SODIUM 40 MG/VIAL (PROTONIX) IVP SCH (08:08)
[2020-05-29] MEDS ORDERED: POTASSIUM CHLORIDE 20 MEQ/PKT PACKET GT ONE (08:30)
[2020-05-29] MEDS: D5W 1,000 ML IV SCH ×2 (08:36→17:22)
[2020-05-29] MEDS ORDERED: POTASSIUM CHLORIDE 40 MEQ in D5W 250 ML IV ONE (09:00)
[2020-05-29] MEDS ORDERED: KCL 40 mEq in 100 mL (PREMIX) 100 ML IV ONE (09:00)
[2020-05-29] MEDS: MORPHINE 2 MG/ML INJ. SYRINGE IVP PRN (15:14)
[2020-05-29] MEDS ORDERED: GASTROGRAFIN 120 ML ONE (15:21)
[2020-05-29] MEDS: MICAFUNGIN SODIUM 100 MG in NS 100 ML IV SCH (15:31)
[2020-05-29 16:22] LABS: ANION GAP 11 (5-15); CALCIUM 9.9 mg/dL (8.4-11.0); CREATININE 1.63 mg/dL (0.55-1.30); GLUCOSE 274 mg/dL (70-99); POTASSIUM 4.3 mmol/L (3.5-5.1)
[2020-05-29 16:57] LABS: CHLORIDE 124 mmol/L (98-107); SODIUM SERUM 163 mmol/L (136-145); UREA NITROGEN, BLOOD 102 mg/dL (8-21)
[2020-05-29] MEDS: LEVOFLOXACIN 250 MG/D5W 50 ML IV SCH (20:00)
[2020-05-29] MEDS: INSULIN GLARGINE 100 UNITS/ML 10 ML VIAL SUBCUT SCH (21:00)
[2020-05-29] MEDS: metroNIDAZOLE 500 mg/NS 100 ML IV SCH (21:41)
[2020-05-30] VITALS (28 sets, daily range): BP systolic 101–171
[2020-05-30] MEDS: METOCLOPRAMIDE HCL 10 MG/2 ML VIAL IVP SCH ×4 (00:03→17:47)
[2020-05-30] MEDS: INSULIN REGULAR, HUMAN 100 UNITS/ML, 10 ML VIAL (humuLIN R) SUBCUT PRN ×4 (00:05→18:03)
[2020-05-30] MEDS ORDERED: METOCLOPRAMIDE HCL 10 MG/2 ML VIAL ONE ×4 (00:10→17:45)
[2020-05-30] MEDS: D5W 1,000 ML IV SCH ×3 (02:00→17:48)
[2020-05-30 05:01] LABS: BASOPHILS % (AUTO) 0.1 % (0.0-2.0); HEMATOCRIT 22.5 % (36-48); HEMOGLOBIN 7.4 g/dL (12.0-16.0); LYMPHOCYTES # (AUTO) 0.2 K/uL (1.0-5.5); LYMPHOCYTES % (AUTO) 2.1 % (20.5-51.5); MEAN CORPUSCULAR HEMOGLOBIN 30 pg (27-31); MEAN CORPUSCULAR HGB CONC 33 % (32-36); MEAN CORPUSCULAR VOLUME 93 fL (79.0-98.0); MONOCYTES # (AUTO) 0.5 K/uL (0.0-1.0); MONOCYTES % (AUTO) 5.1 % (1.7-9.3); NEUTROPHILS # (AUTO) 9.8 K/uL (1.8-7.7); NEUTROPHILS % (AUTO) 92.7 % (40.0-70.0); PLATELET COUNT (AUTO) 151 K/uL (130-430); RED BLOOD CELL COUNT(AUTO) 2.42 MIL/uL (4.2-6.2); RED CELL DISTRIBUTION WIDTH 14.7 % (9.0-15.0); WHITE BLOOD COUNT (AUTO) 10.6 K/uL (4.8-10.8)
[2020-05-30 05:25] LABS: ALANINE AMINOTRANSFERASE 65 U/L (12-78); ALBUMIN 2.2 g/dL (3.4-4.8); ANION GAP 10 (5-15); ASPARTATE AMINOTRANSFERASE 31 U/L (10-37); CHLORIDE 117 mmol/L (98-107); CREATININE 1.46 mg/dL (0.55-1.30); GLUCOSE 300 mg/dL (70-99); POTASSIUM 3.5 mmol/L (3.5-5.1); SODIUM SERUM 154 mmol/L (136-145); TOTAL BILIRUBIN 0.7 mg/dL (0.0-1.0); UREA NITROGEN, BLOOD 89 mg/dL (8-21)
[2020-05-30] MEDS: hydrALAZINE HCL 25 MG TABLET GT SCH ×4 (06:00→22:15)
[2020-05-30] MEDS: metroNIDAZOLE 500 mg/NS 100 ML IV SCH ×3 (06:29→22:16)
[2020-05-30] MEDS: LevALBUTEROL HCL 1.25 MG/0.5 ML *CONC.* VIAL.NEB (XOPENEX CONC.) INH SCH ×2 (08:15→15:50)
[2020-05-30] MEDS ORDERED: POTASSIUM CHLORIDE 40 MEQ in 0.45% NS 250 ML IV ONE (08:30)
[2020-05-30] MEDS: PANTOPRAZOLE SODIUM 40 MG/VIAL (PROTONIX) IVP SCH (08:41)
[2020-05-30] MEDS: BALSAM PERU/CASTOR OIL 60 GM OINT...G. TP SCH (08:41)
[2020-05-30] MEDS: methylPREDNISolone SOD SUCC/PF 62.5 MG/ML VIAL IVP SCH ×2 (08:44→22:15)
[2020-05-30] MEDS ORDERED: POTASSIUM CHLORIDE 40 MEQ in D5W 250 ML IV ONE (08:45)
[2020-05-30] MEDS: MICAFUNGIN SODIUM 100 MG in NS 100 ML IV SCH (15:48)
[2020-05-30] MEDS ORDERED: MENTHOL/ZINC OXIDE 113 GM OINT. TP PRN (17:15)
[2020-05-30] MEDS: LEVOFLOXACIN 250 MG/D5W 50 ML IV SCH (20:00)
[2020-05-30] MEDS: INSULIN GLARGINE 100 UNITS/ML 10 ML VIAL SUBCUT SCH (21:00)
[2020-05-30] MEDS: HEPARIN SODIUM,PORCINE 5,000 UNITS/ML VIAL SUBCUT SCH (22:18)
[2020-05-31] VITALS (18 sets, daily range): BP systolic 95–165
[2020-05-31] MEDS: METOCLOPRAMIDE HCL 10 MG/2 ML VIAL IVP SCH ×4 (00:10→23:22)
[2020-05-31] MEDS: INSULIN REGULAR, HUMAN 100 UNITS/ML, 10 ML VIAL (humuLIN R) SUBCUT PRN ×4 (00:27→23:19)
[2020-05-31] MEDS: LevALBUTEROL HCL 1.25 MG/0.5 ML *CONC.* VIAL.NEB (XOPENEX CONC.) INH SCH ×4 (00:30→23:51)
[2020-05-31] MEDS: D5W 1,000 ML IV SCH ×2 (04:55→14:31)
[2020-05-31 06:19] LABS: BASOPHILS % (AUTO) 0.1 % (0.0-2.0); HEMOGLOBIN 8.2 g/dL (12.0-16.0); LYMPHOCYTES # (AUTO) 0.2 K/uL (1.0-5.5); LYMPHOCYTES % (AUTO) 1.6 % (20.5-51.5); MEAN CORPUSCULAR HEMOGLOBIN 30 pg (27-31); MEAN CORPUSCULAR HGB CONC 33 % (32-36); MEAN CORPUSCULAR VOLUME 93 fL (79.0-98.0); MONOCYTES # (AUTO) 0.5 K/uL (0.0-1.0); MONOCYTES % (AUTO) 4.6 % (1.7-9.3); NEUTROPHILS # (AUTO) 10.6 K/uL (1.8-7.7); NEUTROPHILS % (AUTO) 93.7 % (40.0-70.0); PLATELET COUNT (AUTO) 172 K/uL (130-430); RED CELL DISTRIBUTION WIDTH 14.8 % (9.0-15.0); WHITE BLOOD COUNT (AUTO) 11.3 K/uL (4.8-10.8)
[2020-05-31] MEDS: hydrALAZINE HCL 25 MG TABLET GT SCH ×3 (06:26→22:00)
[2020-05-31] MEDS: metroNIDAZOLE 500 mg/NS 100 ML IV SCH ×3 (06:26→23:32)
[2020-05-31 06:48] LABS: ALANINE AMINOTRANSFERASE 69 U/L (12-78); ALBUMIN 2.3 g/dL (3.4-4.8); ANION GAP 10 (5-15); ASPARTATE AMINOTRANSFERASE 25 U/L (10-37); CALCIUM 9.9 mg/dL (8.4-11.0); CHLORIDE 112 mmol/L (98-107); CREATININE 1.17 mg/dL (0.55-1.30); GLUCOSE 203 mg/dL (70-99); PHOSPHORUS 3.3 mg/dL (2.7-4.5); POTASSIUM 3.7 mmol/L (3.5-5.1); SODIUM SERUM 147 mmol/L (136-145); TOTAL BILIRUBIN 0.8 mg/dL (0.0-1.0); UREA NITROGEN, BLOOD 64 mg/dL (8-21)
[2020-05-31] MEDS: methylPREDNISolone SOD SUCC/PF 62.5 MG/ML VIAL IVP SCH ×2 (08:02→23:21)
[2020-05-31] MEDS: PANTOPRAZOLE SODIUM 40 MG/VIAL (PROTONIX) IVP SCH (08:02)
[2020-05-31] MEDS: HEPARIN SODIUM,PORCINE 5,000 UNITS/ML VIAL SUBCUT SCH ×2 (08:04→23:17)
[2020-05-31] MEDS: BALSAM PERU/CASTOR OIL 60 GM OINT...G. TP SCH (08:05)
[2020-05-31] MEDS ORDERED: POLYETHYLENE GLYCOL 3350, 17 GM/ POWD.PACK PO SCH (09:00)
[2020-05-31] MEDS ORDERED: FUROSEMIDE 20 MG/2 ML VIAL ONE (14:14)
[2020-05-31] MEDS ORDERED: FUROSEMIDE 20 MG/2 ML VIAL IVP ONE (14:15)
[2020-05-31] MEDS: LevALBUTEROL HCL 1.25 MG/0.5 ML *CONC.* VIAL.NEB (XOPENEX CONC.) INH PRN (16:53)
[2020-05-31] MEDS: MICAFUNGIN SODIUM 100 MG in NS 100 ML IV SCH (17:09)
[2020-05-31] MEDS: LEVOFLOXACIN 250 MG/D5W 50 ML IV SCH (23:00)
[2020-05-31] MEDS: INSULIN GLARGINE 100 UNITS/ML 10 ML VIAL SUBCUT SCH (23:13)
[2020-06-01 00:20] VITALS: BP_SYST 93
[2020-06-01] MEDS ORDERED: ENOXAPARIN SODIUM 40 MG/0.4 ML SYRINGE SUBCUT SCH (09:00)
== END 2020-06-01 04:05 | DRG 870 ==
LOC: SED 18:39 → STU 21:04 → SIC 05-20 16:23 → STU 05-31 17:00
PROVIDERS: ADMIT Family Medicine; ATTEND Family Medicine
PROC: 05HY33Z Insertion of Infusion Device into Upper Vein, Percutaneous Approach (ICD-10-PCS; 2020-05-15)
PROC: 5A09457 Assistance with Respiratory Ventilation, 24-96 Consecutive Hours, Continuous Positive Airway Pressure (ICD-10-PCS; 2020-05-16)
PROC: 5A09357 Assistance with Respiratory Ventilation, Less than 24 Consecutive Hours, Continuous Positive Airway Pressure (ICD-10-PCS; 2020-05-20)
PROC: 30233N1 Transfusion of Nonautologous Red Blood Cells into Peripheral Vein, Percutaneous Approach (ICD-10-PCS; 2020-05-20)
PROC: 5A1955Z Respiratory Ventilation, Greater than 96 Consecutive Hours (ICD-10-PCS; principal; 2020-05-21)
PROC: 0BH17EZ Insertion of Endotracheal Airway into Trachea, Via Natural or Artificial Opening (ICD-10-PCS; 2020-05-21)
PROC: 30233R1 Transfusion of Nonautologous Platelets into Peripheral Vein, Percutaneous Approach (ICD-10-PCS; 2020-05-22)
PROC: 0DH64UZ Insertion of Feeding Device into Stomach, Percutaneous Endoscopic Approach (ICD-10-PCS; 2020-05-23)
PROC: 5A1935Z Respiratory Ventilation, Less than 24 Consecutive Hours (ICD-10-PCS; 2020-05-30)
PROC: 5A09357 Assistance with Respiratory Ventilation, Less than 24 Consecutive Hours, Continuous Positive Airway Pressure (ICD-10-PCS; 2020-05-31)
PROC: 0BH17EZ Insertion of Endotracheal Airway into Trachea, Via Natural or Artificial Opening (ICD-10-PCS; 2020-06-01)
PROC: 5A12012 Performance of Cardiac Output, Single, Manual (ICD-10-PCS; 2020-06-01)
DX: A41.9 Sepsis, unspecified organism (principal); J69.0 Pneumonitis due to inhalation of food and vomit; E43 Unspecified severe protein-calorie malnutrition; J96.01 Acute respiratory failure with hypoxia; R65.21 Severe sepsis with septic shock; G93.41 Metabolic encephalopathy; N17.9 Acute kidney failure, unspecified; D68.9 Coagulation defect, unspecified; B37.49 Other urogenital candidiasis; E87.3 Alkalosis; E87.0 Hyperosmolality and hypernatremia; I82.611 Acute embolism and thrombosis of superficial veins of right upper extremity; D64.9 Anemia, unspecified; D69.6 Thrombocytopenia, unspecified; E03.9 Hypothyroidism, unspecified; E78.5 Hyperlipidemia, unspecified; F02.80 Dementia in other diseases classified elsewhere, unspecified severity, without behavioral disturbance, psychotic disturbance, mood disturbance, and anxiety; E86.0 Dehydration; G30.9 Alzheimer's disease, unspecified; I49.3 Ventricular premature depolarization; J44.9 Chronic obstructive pulmonary disease, unspecified; K21.9 Gastro-esophageal reflux disease without esophagitis; N18.9 Chronic kidney disease, unspecified; Z20.822 Contact with and (suspected) exposure to COVID-19; I12.9 Hypertensive chronic kidney disease with stage 1 through stage 4 chronic kidney disease, or unspecified chronic kidney disease; R29.6 Repeated falls; K29.70 Gastritis, unspecified, without bleeding; M06.9 Rheumatoid arthritis, unspecified; R13.10 Dysphagia, unspecified; Z87.891 Personal history of nicotine dependence; Z68.27 Body mass index [BMI] 27.0-27.9, adult; Z86.73 Personal history of transient ischemic attack (TIA), and cerebral infarction without residual deficits; Z79.82 Long term (current) use of aspirin; K94.21 Gastrostomy hemorrhage; Y83.8 Other surgical procedures as the cause of abnormal reaction of the patient, or of later complication, without mention of misadventure at the time of the procedure; Y82.8 Other medical devices associated with adverse incidents; I46.9 Cardiac arrest, cause unspecified
CPT/HCPCS: 36415; 36600; 43246; 70450-TC; 71045; 74018; 74240-TC; 76376; 80048; 80053; 81000-TC; 82607; 82728; 82746; 82803-TC; 82962; 83540-TC; 83550-TC; 83605; 83735-TC; 83880; 84100-TC; 84443-TC; 84478-TC; 84484; 85007; 85025; 85027; 85384-TC; 85610-TC; 85730-TC; 86886; 86900; 86901; 86920; 87040-TC; 87070-TC; 87081; 87086; 87205-TC; 92610-GN; 92950; 93005; 93306; 93970; 93971; 94002; 94003; 94640; 94660; 94668; 94760; 96361; 96365; C9113; G0378; J0360; J0690; J0696; J1030; J1450; J1644; J1815; J1940; J1956; J2060; J2185; J2248; J2250; J2270; J2543; J2597; J2765; J2930; J3010; J3430; J3475; J3480; J3490; J7050; J7060; J7131; J7612; P9021; P9034; P9046; Q9963